=== PATIENT | male | born 1935 | race Caucasian/White ===

== ENCOUNTER → 2019-05-17 14:14 | Outpatient (CLI) | payer MEDICARE, MEDICAID, SELFPAY | PROVIDERS: Family Provider Internal Medicine; PCP Internal Medicine | DX: Z45.2 Encounter for adjustment and management of vascular access device (principal); C18.9 Malignant neoplasm of colon, unspecified; C77.2 Secondary and unspecified malignant neoplasm of intra-abdominal lymph nodes | CPT/HCPCS: 96523; A4216 ==

== ENCOUNTER → 2019-07-02 12:36 | Outpatient (CLI) | payer MEDICARE, MEDICAID, SELFPAY | PROVIDERS: Family Provider Internal Medicine; PCP Internal Medicine | DX: Z45.2 Encounter for adjustment and management of vascular access device (principal); C18.9 Malignant neoplasm of colon, unspecified; C77.2 Secondary and unspecified malignant neoplasm of intra-abdominal lymph nodes | CPT/HCPCS: 96523; A4216 ==

== ENCOUNTER → 2019-07-31 11:48 | Outpatient (CLI) | payer MEDICARE, MEDICAID, SELFPAY | PROVIDERS: Family Provider Internal Medicine; PCP Internal Medicine | DX: Z45.2 Encounter for adjustment and management of vascular access device (principal); C18.9 Malignant neoplasm of colon, unspecified; C77.2 Secondary and unspecified malignant neoplasm of intra-abdominal lymph nodes | CPT/HCPCS: 96523; A4216 ==

== ENCOUNTER 2019-08-15 17:51 | Emergency (ER) | payer MEDICARE, MEDICAID, SELFPAY ==
[2019-08-15 17:52] VITALS: BP 142/58; PULSE 43; RESP 15; TEMP 36.4; O2SAT 98; BMI 27.0
[2019-08-15 20:01] VITALS: RESP 16
[2019-08-15 20:46] LABS: Basophil# 0.07 X10^3/uL; Eosinophils% 5.8 % (0-5); Hematocrit 45.6 % (40-54); Hemoglobin 14.8 g/dL (13.0-16.5); Lymphocyte % 27.3 % (19-41); Mean Corp Hgb Conc 32.5 g/dL (32-36); Mean Corpuscular Hgb 28.6 pg (27.0-32.0); Mean Platelet Vol. 10.5 fl (6.2-12.0); Monocyte# 0.59 X10^3/uL; Monocyte% 8.5 % (0-10); NRBC Flagged by Analyzer 0 % (0-5); Neutrophil # 3.98 X10^3/uL (2.7-7.7); Neutrophil % 57.3 % (47-70); Platelet Count 172 K/mm3 (150-450); RBC Distribution Width CV 12.9 % (11.6-14.6); RBC Distribution Width SD 41.5 fl (35.1-43.9); Red Blood Count 5.18 M/mm3 (4.6-6.2)
[2019-08-15 20:59] LABS: D-Dimer Quantitative (DVT/PE) 1.62 FEU/ug/m (0.27-0.49)
[2019-08-15 21:11] LABS: Anion Gap 3 (5-15); BUN 24 mg/dL (7-18); BUN/Creat Ratio 18.8 RATIO (10-20); Calcium,Total 9.3 mg/dL (8.5-10.1); Chloride 105 mmol/L (98-107); Creatinine, Serum 1.28 mg/dL (0.70-1.30); EST Glomerular Filtration Rate 57 mL/min (>60); Est Glom Filt Rate - Afr Amer 69 mL/min (>60); Estimated Creatinine Clearance 42.96 ml/min; Glucose 296 mg/dL (74-106); Sodium Level 137 mmol/L (136-145)
--- NOTE | 2019-08-15 21:32 | ED.DCSUM_ITS ---
- ER Visit Summary Date of Service: 08/15/19 Chief Complaint: Right arm pain History of Present Illness: The patient is a 83 M who presents with right arm pain that has been gradually getting worse over the past month. Patient states the pain is over the right upper arm and into his right hand. Patient does admit to some tingling. Patient states he noted some redness and a few spots on the dorsal aspect of his forearm and upper arm. Patient denies any fevers or chills. Patient denies any discharge or drainage. Patient states he was referred to the emergency department for ultrasound of his upper extremity for possible DVT. Physical Examination: Vital signs are stable except for bradycardia of 43. Patient is afebrile. Patient is in no acute distress. Oral mucosa is pink and moist. Neck is supple. Trachea is midline. There is no JVD. Musculoskeletal exam reveals tenderness over the medial aspect of the right distal arm and dorsal aspect of the right proximal forearm. There is no bony crepitance or step-off. There is good range of motion. There is no deformity noted. Radial pulses are equal bilaterally. Capillary refill was less than 2 seconds in all digits. Sensation was intact to light touch in the radial, median, and ulnar areas. There is no edema noted. Test Results: D-dimer was obtained and was elevated at 1.62. CBC and basic metabolic profile were obtained and were essentially within normal limits. Emergency Department Course and Treatment: Patient was advised of his results. Patient was given a prescription for an outpatient venous duplex of his right upper extremity. Patient was instructed to follow-up with this as an outpatient. Patient was instructed to follow-up with his primary care physician after this. Patient understands and is agreeable with the plan. All questions were answered. Disposition: Discharge home Impression: Right arm pain This note was generated with [employer] dictation software. It may contain incorrect words, spelling, and punctuation that were not noted in review of the chart prior to signing ED Disposition - Plan for ED Patient: Disposition: Home or Assisted Living Diagnosis: Right arm pain Referrals: Caron Galeano MD [Primary Care Provider] - 3-5 Days
[2019-08-15 21:43] VITALS: RESP 16
[2019-08-15] MEDS: Enoxaparin 80 MG/0.8 ML Syringe SC (21:45)
== END 2019-08-15 21:47 | disposition home or self-care (01) ==
PROVIDERS: Emergency Provider Emergency Medicine; PCP Internal Medicine
DX: M79.621 Pain in right upper arm (principal); Z72.0 Tobacco use; J34.89 Other specified disorders of nose and nasal sinuses; M54.2 Cervicalgia; R21 Rash and other nonspecific skin eruption; R20.2 Paresthesia of skin
CPT/HCPCS: 36415; 80048; 85025; 85379; 96372; 99282

== ENCOUNTER → 2019-08-16 10:13 | Outpatient (CLI) | payer MEDICARE, MEDICAID, SELFPAY ==
[2019-08-15 17:52] VITALS: BMI 27.0
--- NOTE | 2019-08-16 10:32 | VDUE_ITS ---
Reason For Study: elevated d-dimer Right Proximal Right jugular vein is spontaneous, widely patent, phasic, with no intraluminal echogenicity noted. Right subclavian vein is spontaneous, widely patent, phasic, with no intraluminal echogenicity noted. Right Lower Arm Right radial vein is compressible. Right ulnar vein is compressible. Right Arm Right axillary vein is spontaneous, patent, phasic, competent, compressible and demonstrates augmentation. Right brachial vein is compressible. Right cephalic vein is compressible. Right basilic vein is compressible. Interpretation Summary Deep veins of the right upper extremity are patent and compressible segmentally. There is no evidence of deep vein thrombosis. The superficial veins of the right upper extremity, the basilic and cephalic veins, are patent and compressible. There is no evidence of right upper extremity superficial thrombophlebitis involving the veins imaged. Ordering Physician: Osmel Montalvo Referring Physician: Caron Galeano M.D. Performed By: Trae Alva RVT ?
== END ==
PROVIDERS: PCP Internal Medicine; Referring Provider Emergency Medicine; Visit Provider Emergency Medicine
DX: M79.601 Pain in right arm (principal)
CPT/HCPCS: 93971

== ENCOUNTER → 2019-08-28 11:16 | Outpatient (CLI) | payer MEDICARE, MEDICAID, SELFPAY ==
[2019-08-15 17:52] VITALS: BMI 27.0
[2019-08-28] MEDS: 0.9 % NaCl (Sterile) Posiflush 10 mL IV (11:28)
== END ==
PROVIDERS: PCP Internal Medicine
DX: Z45.2 Encounter for adjustment and management of vascular access device (principal); C18.9 Malignant neoplasm of colon, unspecified; C77.2 Secondary and unspecified malignant neoplasm of intra-abdominal lymph nodes
CPT/HCPCS: 96523

== ENCOUNTER → 2019-09-24 14:20 | Outpatient (CLI) | payer MEDICARE, MEDICAID, SELFPAY ==
[2019-09-24] MEDS: 0.9% NaCl VAD Flush IV (14:31)
== END ==
PROVIDERS: PCP Internal Medicine
DX: Z45.2 Encounter for adjustment and management of vascular access device (principal); C18.9 Malignant neoplasm of colon, unspecified; C77.2 Secondary and unspecified malignant neoplasm of intra-abdominal lymph nodes
CPT/HCPCS: 96523; A4216

== ENCOUNTER → 2019-10-26 12:52 | Outpatient (CLI) | payer MEDICARE, MEDICAID, SELFPAY ==
[2019-10-26] MEDS: 0.9 % NaCl (Sterile) Posiflush 10 mL IV (13:11)
== END ==
PROVIDERS: PCP Internal Medicine
DX: Z45.2 Encounter for adjustment and management of vascular access device (principal); C18.9 Malignant neoplasm of colon, unspecified; C77.2 Secondary and unspecified malignant neoplasm of intra-abdominal lymph nodes
CPT/HCPCS: 96523

== ENCOUNTER → 2019-11-23 12:44 | Outpatient (CLI) | payer MEDICARE, MEDICAID, SELFPAY ==
[2019-11-23] MEDS: 0.9 % NaCl (Sterile) Posiflush 10 mL IV (13:10)
[2019-11-23] MEDS: 0.9% NaCl VAD Flush IV (13:15)
== END ==
PROVIDERS: PCP Internal Medicine
DX: Z45.2 Encounter for adjustment and management of vascular access device (principal)
CPT/HCPCS: 96523; A4216

== ENCOUNTER 2020-11-08 12:31 | Emergency (ER) | payer MEDICARE, MEDICAID, SELFPAY ==
[2020-11-08 12:33] VITALS: BP 125/100; PULSE 78; PULSE 84; RESP 16; TEMP 36.2; O2SAT 96; O2SAT 97; BMI 24.2
--- NOTE | 2020-11-08 12:42 | EDS_ITS ---
HPI History of Present Illness Chief Complaint: Hypoglycemia Informant: patient and EMS Onset/Context/Timing Onset: Today Current Severity: Gone Maximum Severity: Moderate Narrative Narrative: Patient presents via EMS secondary to hypoglycemia. Per my understanding the patient's son found him with a decreased level of consciousness and confusion. EMS was called. Blood sugar was 28. EMS gave a 250 cc bag of D10 and repeat blood sugar was 149. Patient is alert at this time and has no complaints. He states he did take his insulin this morning but did not eat breakfast. [facility] Medical History Colon cancer Diabetes High cholesterol Hypertension Home Medications furosemide 20 mg PO DAILY 11/08/20 [History Last Taken Unknown] insulin glargine [Lantus U-100 Insulin] 22 unit SUBCUT DAILY 11/08/20 [History Last Taken Unknown] metoprolol tartrate 12.5 mg PO BID 11/08/20 [History Last Taken Unknown] Allergy/AdvReac Type Severity Reaction Status Date / Time No Known Allergies Allergy Verified 01/20/16 10:39 Surgical History H/O transurethral resection of prostate Social History Smoking Status: Current every day smoker ROS ROS ED Constitutional Constitutional ED: Denies chills or fever(s) Eyes Eyes: Denies change in vision ENT ENT ED: Denies sore throat Cardiovascular Cardiovascular: Denies chest pain Respiratory/Chest Respiratory/Chest: Denies cough or dyspnea Gastrointestinal Gastrointestinal: Denies abdominal pain, diarrhea, nausea or vomiting Genitourinary Genitourinary ED: Denies dysuria Musculoskeletal Musculoskeletal: Denies back pain Integumentary Denies rash Neurologic Neurologic: Denies headache(s) or weakness Psychiatric Psychiatric: Denies anxiety or depression Endocrine Endocrinology: Denies polydipsia or polyuria Allergic/Immunologic Allergic/Immunologic ED: Denies urticaria EXAM Physical Exam Const Vital Signs: 11/08/20 12:33 11/08/20 12:40 Temperature 97.2 F L Temperature Source Temporal Pulse Rate 84 Respiratory Rate 16 Respiratory Effort Normal Respiratory Pattern Normal Blood Pressure 125/100 H Blood Pressure Mean 108 Pulse Ox 97 Oxygen Delivery Method Room Air Positive well nourished and well developed General Appearance ED: well developed HEENT Reports normocephalic and head/scalp atraumatic Eyes PERRL and EOMs intact bilaterally Neck supple Chest Wall inspection of chest normal and palpation of chest normal Resp normal respiratory effort and clear to auscultation bilaterally Cardio regular rate and regular rhythm GI normal to inspection, nondistended, normoactive bowel sounds Palpation: soft Extremity normal to inspection Neuro oriented x3 and no sensory deficits noted Neuro Narrative: No focal neurologic deficits. Sensorium / Orientation: alert and other Psych mental status grossly normal Skin no rashes or lesions noted MDM MDM MDM Narrative Medical decision making narrative: Patient given a p.o. diet here. Blood sugars have remained in the 140s. Lab Data Labs: Laboratory Results - last 24 hr 11/08/20 13:21 POC Glucose 127 H Treatment and Re-Evaluation Comments:: At this time patient is comfortable and maintaining his blood sugars. He did assure me that he will be sure to eat when he takes his insulin. He will be discharged home with family at bedside. Discharge Plan Triage Chief Complaint: Hypoglycemia ED Provider: Alanna Mcgovern Dx/Rx/DC Orders Clinical Impression: Hypoglycemia Instructions: ED Diabetic Insulin Reaction Prescriptions: No Action Lantus U-100 Insulin 100 unit/mL solution 22 unit SUBCUT DAILY RF: 0 furosemide 20 mg tablet 20 mg PO DAILY RF: 0 metoprolol tartrate 25 mg tablet 12.5 mg PO BID RF: 0 Primary Care Provider: Caron Galeano Referrals: Caron Galeano MD [Primary Care Provider] - As Needed Disposition Disposition: Home, self care
[2020-11-08 13:26] LABS: Bedside Glucose 127 mg/dL (70-110)
[2020-11-08 14:01] LABS: Bedside Glucose 142 mg/dL (70-110)
[2020-11-08 14:34] VITALS: BP 146/95; PULSE 79; RESP 16; O2SAT 97
== END 2020-11-08 14:38 | disposition home or self-care (01) ==
PROVIDERS: Emergency Provider Emergency Medicine; PCP Internal Medicine
DX: E11.649 Type 2 diabetes mellitus with hypoglycemia without coma (principal); I10 Essential (primary) hypertension; Z79.4 Long term (current) use of insulin; Z79.899 Other long term (current) drug therapy; F17.200 Nicotine dependence, unspecified, uncomplicated
CPT/HCPCS: 82962; 99284

== ENCOUNTER 2021-02-13 10:14 | Inpatient (IN) | payer MEDICARE, MEDICAID, SELFPAY ==
[2021-02-13] VITALS (11 sets, daily range): BP systolic 103–119; BP diastolic 63–84; PULSE 73–91; RESP 10–22; TEMP 36.6–37.1; O2SAT 95–100; BMI 21.9; BMI 22.1
--- NOTE | 2021-02-13 10:25 | EDS_ITS ---
HPI HPI - GI History of Present Illness Chief Complaint: Nausea/Vomiting/Diarrhea Informant: patient Abdominal Pain/Flank Pain Onset: Days Context: Gradual Onset Timing: Continuous Current Severity: Mild Maximum Severity: Mild Nausea/Vomiting/Emesis GI Symptom: Positive for Vomiting Onset: Today Severity: Mild Diarrhea/Melena/Hematochezia GI Symptom: Positive for Diarrhea Onset: Days Stool Quality: Positive for Watery Severity: Mild Associated Symptoms Associated Symptoms: Negative for Dysuria, Frequency, Hematuria and Urgency Narrative Narrative: 85-year-old male history of colon cancer metastases, diabetes and hypertension. He has had 4 to 5 days of watery diarrhea was diagnosed with C. difficile. Spoke with his oncologist office and was sent to the emergency department today. He denies any fever or chills. Did have one episode of vomiting today. Denies any nausea currently. Prior similar symptoms: No Recent Illness/Hospitalization: No PFSH PFSH Medical History Colon cancer Diabetes High cholesterol Hypertension Home Medications furosemide 20 mg PO DAILY 11/08/20 [History Last Taken Unknown] insulin glargine [Lantus U-100 Insulin] 22 unit SUBCUT DAILY 11/08/20 [History Last Taken Unknown] metoprolol tartrate 12.5 mg PO BID 11/08/20 [History Last Taken Unknown] Allergy/AdvReac Type Severity Reaction Status Date / Time No Known Allergies Allergy Verified 01/20/16 10:39 Surgical History H/O transurethral resection of prostate Social History Smoking Status: Current every day smoker tobacco type: cigarettes ROS ROS ED ROS Narrative Diarrhea. Vomiting x1 today. Review of Systems ROS Unobtainable: Denies due to encephalopathy Constitutional Constitutional ED: Denies chills or fever(s) ENT ENT ED: Denies ear pain or sore throat Cardiovascular Cardiovascular: Denies chest pain Respiratory/Chest Respiratory/Chest: Denies cough or dyspnea Gastrointestinal Gastrointestinal: Reports abdominal pain, diarrhea, nausea and vomiting Genitourinary Genitourinary ED: Denies dysuria or hematuria Musculoskeletal Musculoskeletal: Denies myalgias Integumentary Denies rash Neurologic Neurologic: Denies headache(s) Psychiatric Psychiatric: Denies depression Endocrine Endocrinology: Denies polyuria Hematologic/Lymphatic Hematologic/Lymphatic: Denies easy bruising Allergic/Immunologic Allergic/Immunologic ED: Denies urticaria EXAM Physical Exam Narrative Exam Narrative: 85-year-old male vital signs stable afebrile. Does not look septic or toxic. H EENT exam moist with memories. Neck nontender. Lungs clear to auscultation. Heart regular rhythm. Abdomen soft. Diffusely tender. No peritoneal signs. No signs of obstruction. Positive bowel sounds. No hernia or mass. Patient moving all 4 extremities. Nontender no edema. Back nontender. Neurologically is awake and alert moving all 4 extremities. Const Vital Signs: 02/13/21 10:15 02/13/21 10:18 02/13/21 11:18 Temperature 97.8 F 97.8 F 98 F Temperature Source Oral Oral Temporal Pulse Rate 89 89 73 Respiratory Rate 16 16 10 L Blood Pressure 119/84 H 119/84 H 119/67 Blood Pressure Mean 95 95 84 Pulse Ox 99 99 99 Oxygen Delivery Method Room Air Room Air Room Air 02/13/21 12:00 02/13/21 12:52 02/13/21 13:00 Temperature 98 F 98.1 F Temperature Source Temporal Temporal Pulse Rate 73 76 77 Respiratory Rate 15 12 11 L Blood Pressure 108/64 104/70 104/63 Blood Pressure Mean 78 81 76 Pulse Ox 100 98 Oxygen Delivery Method Room Air Room Air Positive well nourished, well developed and cachectic; Negative for unkempt General Appearance ED: well developed, cachectic and NAD; Negative for unkempt Nutritional Appearance: cachectic HEENT Reports moist mucous membranes normocephalic and atraumatic; Negative for trauma or tenderness Eyes PERRL Neck no lymphadenopathy, supple and no JVD General: Negative for tenderness Resp normal respiratory effort and clear to auscultation bilaterally Auscultation: Negative for rales, rhonchi or wheezes Cardio regular rate, regular rhythm, S1 normal heart sound, S2 normal heart sound and no murmurs GI no masses; Negative for non-tender or non-distended Inspection: abdominal distention Auscultation: normoactive bowel sounds; Negative for hyperactive bowel sounds or hypoactive bowel sounds Palpation: soft and tender; Negative for guarding, rigid or rebound tenderness present Back/Spine no CVA tenderness Extremity full ROM General Extremety ED: Negative for edema or tenderness General Extremity: Negative for edema Neuro moves all extremities Sensorium / Orientation: alert, oriented to person, oriented to place and oriented to time; Negative for orientation impaired, confused, lethargic or stuporous Motor Exam: strength 5/5 throughout Psych mental status grossly normal Appearance: Negative for unkempt Skin no wounds General Skin Exam: Negative for jaundice Lesions: no lesions Rashes: no rashes MDM MDM MDM Narrative Medical decision making narrative: 85-year-old male reportedly has C. difficile. Patient needed with IV fluids and will obtain screening labs. Repeat exam patient is doing well at 2:30 PM. I spoke to his oncologist Dr. Thornton. He would like the patient to be treated inpatient for C. difficile and IV hydration. He states he is been calm in his office the last several days to receive IV fluids. Family's been telling him that the patient is weak at home and lethargic and is concerned with him over the weekend. The hospitalist on page. Lab Data Attestation: I reviewed the patient's lab results. Lab results narrative: CBC shows white count 3.1. Hemoglobin 11.7. Previously was 14. Electrolytes show a normal gap of 4. BUN of 32 creatinine 1.18 consistent with mild dehydration. Liver enzymes unremarkable. Labs: Laboratory Results - last 24 hr 02/13/21 02/13/21 10:45 10:45 WBC 3.1 L RBC 3.58 L Hgb 11.7 L Hct 35.8 L MCV 100.0 H MCH 32.7 H MCHC 32.7 RDW Std Deviation 51.5 H RDW Coeff of Ortega 14.2 Plt Count 147 L MPV 9.9 Immature Gran % (Auto) 0.300 Neut % (Auto) 45.9 L Lymph % (Auto) 42.3 H Ware % (Auto) 4.9 Eos % (Auto) 5.9 H Baso % (Auto) 0.7 Absolute Neuts (auto) 1.4 L Absolute Lymphs (auto) 1.30 Nucleated RBC % 0 Sodium 138 Potassium 4.2 Chloride 107 Carbon Dioxide 27.0 Anion Gap 4 L BUN 32 H Creatinine 1.18 Estim Creat Clear Calc 41.52 Est GFR (MDRD) Af Amer 75 Est GFR (MDRD) Non-Af 62 BUN/Creatinine Ratio 27.1 H Glucose 139 H Calcium 9.2 Total Bilirubin 0.50 AST 11 L ALT 18 Alkaline Phosphatase 76 Total Protein 6.4 Albumin 3.0 L Globulin 3.4 Albumin/Globulin Ratio 0.9 Radiography Diagnostic Testing: Radiology Impression Abdomen/Pelvis CT 02/13/21 10:30 IMPRESSION: Diffuse ascites and omental metastasis. Findings suggestive of a gallstone within the contracted gallbladder. Large left renal cyst. Diffuse circumferential thickening of the terminal ileum. Prostatic enlargement. 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
--- NOTE | 2021-02-13 10:30 | CT_ITS ---
STUDY: CT ABDOMEN AND PELVIS WITH CONTRAST REASON FOR EXAM: Male, 85 years old. Abdominal pain. History of prostate and colon carcinoma with metastasis. RADIATION DOSAGE (If Supplied By Facility): CTDIvol = ( 11.02 ) mGy, DLP = ( 623.31 ) mGycm TECHNIQUE: Transaxial images were obtained from the dome of the diaphragm to the symphysis pubis without oral contrast. IV 100mL Isovue-370 was administered. Sagittal and coronal images were reconstructed. Individualized dose optimization techniques were used for this CT. COMPARISON: None. FINDINGS: There is a 1.4 cm x 2 cm noncalcified nodule in the posterior medial aspect of the right lower lobe suggestive metastatic deposit. Minimal linear bibasilar atelectasis. Coronary artery calcification. Disturbance of the ascites with omental metastasis. Normal liver. The gallbladder is contracted. A suspect a gallstone in the region of the neck of the gallbladder. Tiny peripheral cystic changes along the serosal aspect of the spleen. Metastatic deposits should be ruled out. Normal pancreas. Normal bilateral adrenal glands. Normal right kidney. There is a 9.9 cm x 9.2 cm cyst in the upper pole of the left kidney. There is a small hiatal hernia. Fluid filled nondilated small bowel loops.. Surgical anastomosis seen in the mid descending colon. Fluid distended colon. There is diffuse segmental thickening of the terminal ileum. There is diffuse atherosclerotic calcification of the abdominal aorta. There is a fusiform infrarenal abdominal aortic aneurysm with a transverse dimension of 3.2 cm. Normal inferior vena cava. Normal retroperitoneum. The urinary bladder is distended. There is enlargement of the prostate gland. The prostate measures 5.6 cm x 6.4 cm. This causes indentation at the bladder base. Small amount of fluid is seen in the pelvis. Evidence of prior bilateral inguinal hernia repair with mesh placement. There are degenerative changes of the visualized lumbar spine. CT/Abdomen/Pelvis W IV Cont ONLY IMPRESSION: Diffuse ascites and omental metastasis. Findings suggestive of a gallstone within the contracted gallbladder. Large left renal cyst. Diffuse circumferential thickening of the terminal ileum. Prostatic enlargement. Electronically Signed: Alfredo Fall MD at 12:05 EDT , Service support ,
[2021-02-13] MEDS: 0.9% Normal Saline 1,000 ML 1000 ML IV (10:47)
[2021-02-13 10:55] LABS: Absolute Neutrophil Count 1.4 X10^3/uL (2.0-7.7); Basophil# 0.02 X10^3/uL; Basophil% 0.7 % (0-1); Eosinophil# 0.18 X10^3/uL; Eosinophils% 5.9 % (0-5); Hematocrit 35.8 % (40-54); Hemoglobin 11.7 g/dL (13.0-16.5); Lymphocyte % 42.3 % (19-41); Mean Corp Hgb Conc 32.7 g/dL (32-36); Mean Corpuscular Hgb 32.7 pg (27.0-32.0); Mean Platelet Vol. 9.9 fl (6.2-12.0); Monocyte# 0.15 X10^3/uL; Monocyte% 4.9 % (0-10); NRBC Flagged by Analyzer 0 % (0-5); Neutrophil # 1.41 X10^3/uL (2.7-7.7); Neutrophil % 45.9 % (47-70); Platelet Count 147 K/mm3 (150-450); RBC Distribution Width CV 14.2 % (11.6-14.6); RBC Distribution Width SD 51.5 fl (35.1-43.9); Red Blood Count 3.58 M/mm3 (4.6-6.2); White Blood Count 3.1 K/mm3 (4.4-11.0)
[2021-02-13 11:12] LABS: ALB/GLOB Ratio 0.9 RATIO (0.9-2.4); AST(SGOT) 11 U/L (15-37); Alanine Aminotransfer ALT/SGPT 18 U/L (16-61); Alkaline Phosphatase 76 U/L (45-117); Anion Gap 4 (5-15); BUN 32 mg/dL (7-18); BUN/Creat Ratio 27.1 RATIO (10-20); Calcium,Total 9.2 mg/dL (8.5-10.1); Chloride 107 mmol/L (98-107); Creatinine, Serum 1.18 mg/dL (0.70-1.30); EST Glomerular Filtration Rate 62 mL/min (>60); Est Glom Filt Rate - Afr Amer 75 mL/min (>60); Estimated Creatinine Clearance 41.52 ml/min; Globulin 3.4 g/dL (2.2-4.2); Glucose 139 mg/dL (74-106); Potassium 4.2 mmol/L (3.5-5.1); Protein, Total 6.4 g/dL (6.4-8.2); Sodium Level 138 mmol/L (136-145)
--- NOTE | 2021-02-13 14:47 | NURSING ---
DR GREGG QUEZADA
--- NOTE | 2021-02-13 14:48 | NURSING ---
HOSPITALIST FOR DR QUEZADA
--- NOTE | 2021-02-13 15:07 | NURSING ---
MED SURG NUAMAB CDIFF, DEHYDRATION, FAILURE TO THRIVE, COLON CA WITH METS
--- NOTE | 2021-02-13 15:44 | HP.PCM.HOS_ITS ---
Documented by User: Gaurav FERNÁNDEZ 02/13/21 16:28 HPI - General General Date of Admission: 02/13/21 Date of Service: 02/13/21 Chief Complaint: Nausea, Vomiting and Diarrhea HPI Narrative SARMAD MOY is an 85-year-old male who presents to the ED at [facility] on 02/13/2021 with a chief complaint of nausea, vomiting and diarrhea. Patient reports that for the past 2 months he has had persistent N/V/D that has gotten progressively worse. Patient reports that last bowel movement was while he was in the emergency department and that his diarrhea was brown, watery and not formed. given the chronicity of patient's symptoms, patient states there is nothing specific that brings him in today although he just feels extremely fatigued and lethargic. Review of systems is significant for abdominal pain, N/V/D, fatigue, lethargy and malaise. Past medical history is significant for colon cancer, for which the patient receives chemotherapy through a chest port. Vital signs in the ED are stable and patient is afebrile. CBC does not demonstrate a leukocytosis. BMP is unremarkable. CT of the abdomen/pelvis demonstrates diffuse ascites and omental metastasis, a gallstone within a contra cted gallbladder, left large renal cyst, prostatic enlargement and diffuse circumferential thickening of the terminal ileum suggestive of inflammation. Patient was given fluids in the ED. PFSH Medical History Colon cancer Diabetes High cholesterol Hypertension Kidney stones Smoker Home Medications amlodipine 5 mg PO DAILY 02/13/21 [History Last Taken 02/13/21] aspirin 325 mg PO QHS 02/13/21 [History Last Taken 02/12/21] diphenoxylate-atropine 1 tab PO 4X/DAY 02/13/21 [History Last Taken 02/13/21] gabapentin 300 mg PO QHS 02/13/21 [History Last Taken 02/12/21] glimepiride 4 mg PO BID 02/13/21 [History Last Taken 02/13/21] metformin 850 mg PO BIDCM 02/13/21 [History Last Taken 02/13/21] Allergy/AdvReac Type Severity Reaction Status Date / Time No Known Allergies Allergy Verified 01/20/16 10:39 Family History (Updated 02/13/21 @ 16:11 by Gaurav FERNÁNDEZ) Father , Denies any known history of HTN, CAD or DM2 No problems noted. Mother , Denies any known history of HTN, CAD or DM2 No problems noted. Surgical History H/O transurethral resection of prostate History of colon surgery Social History (Updated 02/13/21 @ 16:14 by Gaurav FERNÁNDEZ) household members: children housing: house Smoking Status: Current every day smoker tobacco type: cigarettes Tobacco: How many years used: 60 alcohol intake: former substance use type: marijuana additional social history: Patient endorses using edible marijuana gummies for his cancer related pain. ROS Constitutional Constitutional: Reports chills, fatigue, fever(s), malaise and weakness; Denies anorexia, change in weight, night sweats or other Eyes Eyes: Denies blurry vision, change in eye color, change in vision, discharge from eye(s), double vision, erythema, eye pain, loss of vision or other ENT HEENT: Denies abnormal hearing, dysphagia, ear pain, epistaxis, headache(s), hearing loss, nasal congestion, nasal discharge, post nasal drip, sinus pressure, sore throat or other Cardiovascular Cardiovascular: Reports chest pain; Denies claudication, dyspnea on exertion, edema, lightheadedness, orthopnea, palpitations, paroxysmal nocturnal dyspnea, rapid heart rate, syncope or other Respiratory/Chest Respiratory/Chest: Denies cough, dyspnea, excessive phlegm production, hemoptysis, productive cough, shortness of breath at rest, shortness of breath with exertion, wheezing or other Gastrointestinal Gastrointestinal: Reports abdominal pain, diarrhea, loose stools, nausea and vomiting; Denies coffee ground emesis, constipation, dyspepsia, hematemesis, hematochezia, melena or other Genitourinary Genitourinary: Denies burning urination, difficulty urinating, dysuria, hematuria, nocturia, urinary frequency, urinary hesitancy, urinary incontinence, urinary urgency or other Musculoskeletal Musculoskeletal: Denies arthralgias, back pain, joint pain, joint stiffness, joint swelling, myalgias, neck pain or other Neurologic Neurologic: Denies abnormal gait, abnormal speech, confusion, disequilibrium, dizziness, focal weakness, headache(s), numbness, paresthesias, seizure-like activity, seizures, syncope, tingling, tremor(s) or other Psychiatric Psychiatric: Denies anxiety, depression, homicidal ideation, suicidal ideation or other Endocrine Endocrinology: Denies change in body appearance, cold intolerance, excessive sweating, heat intolerance, polydipsia, polyuria or other Hematologic/Lymphatic Hematologic/Lymphatic: Denies anemia, easy bleeding, easy bruising, lymphadenopathy or other Allergic/Immunologic Allergic/Immunologic: Denies rhinitis, hives, eczemia, asthma or other Vital Signs Vital Signs Vital Signs: 02/13/21 10:15 02/13/21 10:18 02/13/21 11:18 Temperature 97.8 F 97.8 F 98 F Temperature Source Oral Oral Temporal Pulse Rate 89 89 73 Respiratory Rate 16 16 10 L Blood Pressure 119/84 H 119/84 H 119/67 Blood Pressure Mean 95 95 84 Pulse Ox 99 99 99 Oxygen Delivery Method Room Air Room Air Room Air 02/13/21 12:00 02/13/21 12:52 02/13/21 13:00 Temperature 98 F 98.1 F Temperature Source Temporal Temporal Pulse Rate 73 76 77 Respiratory Rate 15 12 11 L Blood Pressure 108/64 104/70 104/63 Blood Pressure Mean 78 81 76 Pulse Ox 100 98 Oxygen Delivery Method Room Air Room Air 02/13/21 14:43 02/13/21 15:10 Temperature 98.7 F Temperature Source Temporal Pulse Rate 85 85 Respiratory Rate 22 H 15 Blood Pressure 112/65 112/71 Blood Pressure Mean 80 84 Pulse Ox 99 98 Oxygen Delivery Method Room Air Room Air Weight Weight: 144 lb Body Mass Index (BMI) 21.9 Physical Exam Const alert and oriented x3 General Appearance: cooperative HEENT normocephalic, head/scalp atraumatic and hearing grossly normal bilaterally Eyes EOMs intact bilaterally and conjunctivae normal Neck no lymphadenopathy, supple and no JVD Resp normal respiratory effort, no retractions, no use of accessory muscles and clear to auscultation bilaterally Cardio regular rate, regular rhythm, no murmurs and no JVD GI Inspection: abdominal distention Auscultation: normoactive bowel sounds Palpation: tender epigastric and suprapubic Extremity normal to inspection, full ROM and no clubbing, cyanosis or edema Skin no rashes or lesions noted, no wounds, skin turgor normal and no jaundice Neuro CN's II-XII intact bilaterally Psych affect normal Results Lab / Micro Data Result Diagrams: 02/13/21 10:45 02/13/21 10:45 Labs: Laboratory Results - last 24 hr 02/13/21 10:45: WBC 3.1 L, RBC 3.58 L, Hgb 11.7 L, Hct 35.8 L, MCV 100.0 H, MCH 32.7 H, MCHC 32.7, RDW Std Deviation 51.5 H, RDW Coeff of Ortega 14.2, Plt Count 147 L, MPV 9.9, Immature Gran % (Auto) 0.300, Neut % (Auto) 45.9 L, Lymph % (Auto) 42.3 H, [place] % (Auto) 4.9, Eos % (Auto) 5.9 H, Baso % (Auto) 0.7, Absolute Neuts (auto) 1.4 L, Absolute Lymphs (auto) 1.30, Nucleated RBC % 0 02/13/21 10:45: Sodium 138, Potassium 4.2, Chloride 107, Carbon Dioxide 27.0, Anion Gap 4 L, BUN 32 H, Creatinine 1.18, Estim Creat Clear Calc 41.52, Est GFR (MDRD) Af Amer 75, Est GFR (MDRD) Non-Af 62, BUN/Creatinine Ratio 27.1 H, Glucose 139 H, Calcium 9.2, Total Bilirubin 0.50, AST 11 L, ALT 18, Alkaline Phosphatase 76, Total Protein 6.4, Albumin 3.0 L, Globulin 3.4, Albumin/Globulin Ratio 0.9 Radiology Impression Abdomen/Pelvis CT 02/13/21 10:30 IMPRESSION: Diffuse ascites and omental metastasis. Findings suggestive of a gallstone within the contracted gallbladder. Large left renal cyst. Diffuse circumferential thickening of the terminal ileum. Prostatic enlargement. 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 Patient will be admitted for acute management of C. difficile diarrhea. 1) C. Diff diarrhea Patient presents to the ED with a 2-month history of worsening nausea, vomiting and diarrhea. Patient is also complaining of abdominal pain, fatigue, malaise, fever and chills. Vital signs stable and patient is afebrile. BMP is unremarkable and does not demonstrate any electrolyte abnormalities. CT of the abdomen/pelvis demonstrates diffuse circumferential thickening of the terminal ileum consistent with colonic inflammation. Plan; admit to [facility] for management of C. difficile diarrhea, CBC and BMP in a.m., initiate vancomycin, initiate IV fluids, Tylenol as needed, Zofran as needed, Mylanta as needed, PT/OT eval ordered. 2) colon cancer with metastasis Possibly contributing #1. Continue outpatient management. 3) DM2 with neuropathy Accu-Cheks with sliding scale insulin ordered, home Metformin and glimepiride held, continue gabapentin. 4) HTN Stable, continue amlodipine. 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 DVT prophylaxis - Lovenox Patient seen by Gaurav Ruby PA-C, under the supervision of Dr. Crawford. Documented by User: Dr. Lyndsey Crawford MD 02/13/21 17:22 HPI - General General Date of Admission: 02/13/21 [facility] Medical History Colon cancer Diabetes High cholesterol Hypertension Kidney stones Smoker Home Medications amlodipine 5 mg PO DAILY 02/13/21 [History Last Taken 02/13/21] aspirin 325 mg PO QHS 02/13/21 [History Last Taken 02/12/21] diphenoxylate-atropine 1 tab PO 4X/DAY 02/13/21 [History Last Taken 02/13/21] gabapentin 300 mg PO QHS 02/13/21 [History Last Taken 02/12/21] glimepiride 4 mg PO BID 02/13/21 [History Last Taken 02/13/21] metformin 850 mg PO BIDCM 02/13/21 [History Last Taken 02/13/21] Allergy/AdvReac Type Severity Reaction Status Date / Time No Known Allergies Allergy Verified 01/20/16 10:39 Family History (Updated 02/13/21 @ 16:11 by Gaurav FERNÁNDEZ) Father , Denies any known history of HTN, CAD or DM2 No problems noted. Mother , Denies any known history of HTN, CAD or DM2 No problems noted. Surgical History H/O transurethral resection of prostate History of colon surgery Social History (Updated 02/13/21 @ 16:14 by Gaurav FERNÁNDEZ) household members: children housing: house Smoking Status: Current every day smoker tobacco type: cigarettes Tobacco: How many years used: 60 alcohol intake: former substance use type: marijuana additional social history: Patient endorses using edible marijuana gummies for his cancer related pain. Results Lab / Micro Data Result Diagrams: 02/13/21 10:45 02/13/21 10:45 Charges/Coding Addendum Addendum: This patient was seen in conjunction with JOLENE Marshall. I have independently interviewed and examined the patient and reviewed pertinent historical, laboratory, and other data. Please refer to JOLENE Marshall's note for his patient's presentation, findings, and recommendations. I have reviewed and his note and concur with his documentation 85-year-old male with past medical history of metastatic colon CA, hypertension, type II DM who comes in with diarrhea ongoing for weeks. He was diagnosed with acute C. difficile a few days ago in his oncologist office. He was not started on treatment. He was sent to the ED from his oncology office for IV fluids and the above. Patient complains of slight abdominal pain which is not new. Denied any fever or chills. Admits to some burning on urination on and off. Patient has also been vomiting. He has had 2 bowel movements today. Physical Exam: Gen: Appears unwell, pale, not jaundiced CVS:HS I +II, regular, no murmurs RESP: Diminished at lung bases GI: BS present and normal, soft, slight generalized tenderness, no guarding, no palpable organs EXT:No edema ASSESSMENT: 1. Acute CHF 2. Metastatic colon CA 3. Hypertension 4. Type II DM Plan: Continue with p.o. vancomycin, contact isolation IV fluids Hold oral hypoglycemic agents, continue on insulin sliding scale PT/OT to evaluate Repeat blood work in a.m. I discussed and explained in details the various types of CODE STATUS-full code, DNR CCA, DNR CC. Patient chose DNR CCA, NO INTUBATION. Time spent discussing CODE STATUS 16 minutes Visit Charges Inpatient E&M: 18911 Init Hosp L3 Procedures Hospitalists Procedures: 56255 Advncd Care Plan 30 Min
[2021-02-13 15:55] LABS: Magnesium 1.9 mg/dL (1.6-2.6)
[2021-02-13] MEDS: 0.9% Normal Saline 1,000 ML 125 ML IV (16:58)
[2021-02-13 17:26] LABS: Bedside Glucose 80 mg/dL (70-110)
[2021-02-13] MEDS: Vancomycin 125 MG/5 ML Susp PO.SYRINGE PO ×2 (20:16→23:09)
[2021-02-13] MEDS: Acetaminophen 325 MG Tablet 650 MG PO (20:17)
[2021-02-13] MEDS: Gabapentin 300 MG Capsule PO (22:48)
[2021-02-13] MEDS: Mag Hydrox/Al Hydrox/Simeth 30 ML UDC PO (22:48)
[2021-02-13] MEDS: Aspirin 325 MG Tablet PO (22:48)
[2021-02-13] MEDS: Ondansetron 4 MG/2 ML Vial IV (22:48)
[2021-02-13] MEDS: Menthol/Lanolin/Calamine/Znox 113 GM Tube 1 APPLIC TOPICAL (22:49)
[2021-02-13 22:55] LABS: Bedside Glucose 162 mg/dL (70-110)
[2021-02-13] MEDS: Insulin Lispro 100 UNIT/ML INSULN.PEN SC (23:09)
[2021-02-14] MEDS: 0.9% Normal Saline 1,000 ML 125 ML IV ×3 (02:06→17:33)
[2021-02-14 05:39] VITALS: BP 122/72; PULSE 79; RESP 18; TEMP 36.4; O2SAT 95
[2021-02-14 05:41] LABS: Mucous, Urine 0 SEEN /hpf (<or=2+); Squamous Epithelial Cells - UA 0 SEEN /hpf (0-5)
[2021-02-14] MEDS: Vancomycin 125 MG/5 ML Susp PO.SYRINGE PO ×3 (05:42→17:33)
[2021-02-14] MEDS: Menthol/Lanolin/Calamine/Znox 113 GM Tube 1 APPLIC TOPICAL ×3 (05:42→21:19)
[2021-02-14 05:43] LABS: Color, Urine Yellow (Yellow); Glucose, Dipstick Normal (Normal); Ketone-Dipstick Negative (Negative); Leukocyte Esterase-Dipstick 100 /ul (Negative); Nitrite-Dipstick Negative (Negative); Occult Blood-Urine 150 /ul (Negative); Protein-Dipstick 30 mg/dl (Negative); Urine Bilirubin Dipstick Negative (Negative); Urine Clarity Sl. Cloudy (Clear); Urine Urobilinogen Normal (Normal)
[2021-02-14 05:51] LABS: Bedside Glucose 128 mg/dL (70-110)
[2021-02-14 06:04] LABS: Triple Phosphate Crystals Ur 2+ /hpf (<or=1+)
[2021-02-14 06:05] LABS: Bacteria 3+ /hpf (None Seen)
[2021-02-14 06:06] LABS: Red Blood Cells-Urine 10-25 SEEN /hpf (0-5); White Blood Cells 10-25 SEEN /hpf (0-5)
[2021-02-14] MEDS: amLODIPine 5 MG Tablet PO (08:35)
[2021-02-14] MEDS: Enoxaparin 40 MG/0.4 ML Syringe SC (08:35)
[2021-02-14 08:38] VITALS: BP 127/74; PULSE 98; RESP 16; TEMP 36.3; O2SAT 98
[2021-02-14 08:41] LABS: ALB/GLOB Ratio 0.8 RATIO (0.9-2.4); AST(SGOT) 11 U/L (15-37); Alanine Aminotransfer ALT/SGPT 19 U/L (16-61); Alkaline Phosphatase 85 U/L (45-117); Anion Gap 5 (5-15); BUN 25 mg/dL (7-18); BUN/Creat Ratio 21.9 RATIO (10-20); Calcium,Total 8.8 mg/dL (8.5-10.1); Chloride 110 mmol/L (98-107); Creatinine, Serum 1.14 mg/dL (0.70-1.30); EST Glomerular Filtration Rate 65 mL/min (>60); Est Glom Filt Rate - Afr Amer 78 mL/min (>60); Estimated Creatinine Clearance 44.14 ml/min; Globulin 3.7 g/dL (2.2-4.2); Glucose 113 mg/dL (74-106); Potassium 4.2 mmol/L (3.5-5.1); Protein, Total 6.7 g/dL (6.4-8.2); Sodium Level 140 mmol/L (136-145)
--- NOTE | 2021-02-14 10:10 | CASEMGMT ---
ASHLEIGH GOODRICH Face to Face with patient for initial transition planning/care coordination assessment. RN CM introduced self and role at [facility]. Patient lying in bed, alert and oriented. Patient willing to participate in assessment and is able to answer all questions appropriately. Care providers, pharmacy, and demographics verified. Patient wishes to discharge home, denies need for home health at this time. Patient states he has no further needs or concerns at this time. CM to follow for discharge planning needs that may arise. PCP: Froylan Specialists: Norberto, oncologist Preferred Pharmacy: [facility] Insurance: [employer] Prescription Benefit: yes Living Will/HPOA: none LNOK: sons Living Arrangements: Patient lives with son in a 2 story home with access for bed and bath on first floor if needed. Patient states he is independent and able to ambulate stairs. Transportation: Friend [employer] DME/HHC: Patient states he has shower chair, BSC, cane, walker, rollator, grab bars, and medical alert. Patient states he has previously had HHC but could not recall and states they did not help. Disposition Plan: Patient to discharge home with family support and follow-up plans in place. Jessica WEBB, RN, CM
[2021-02-14 12:57] LABS: Absolute Lymphocyte Count 1.89 X10^3/uL (0.83-4.51); Absolute Neutrophil Count 1.1 X10^3/uL (2.0-7.7); Basophil# 0.02 X10^3/uL; Basophil% 0.6 % (0-1); Eosinophil# 0.12 X10^3/uL; Eosinophils% 3.7 % (0-5); Hematocrit 40.4 % (40-54); Hemoglobin 13.1 g/dL (13.0-16.5); Lymphocyte # 1.89 X10^3/ul (0.83-4.51); Mean Corp Hgb Conc 32.4 g/dL (32-36); Mean Corpuscular Hgb 32.6 pg (27.0-32.0); Mean Corpuscular Volume 100.5 fL (80-94); Mean Platelet Vol. 10.2 fl (6.2-12.0); Monocyte# 0.12 X10^3/uL; Monocyte% 3.7 % (0-10); NRBC Flagged by Analyzer 0 % (0-5); Neutrophil # 1.11 X10^3/uL (2.7-7.7); Platelet Count 171 K/mm3 (150-450); RBC Distribution Width CV 14.6 % (11.6-14.6); RBC Distribution Width SD 53.4 fl (35.1-43.9); Red Blood Count 4.02 M/mm3 (4.6-6.2); White Blood Count 3.3 K/mm3 (4.4-11.0)
[2021-02-14 15:02] VITALS: BP 120/57; PULSE 95; RESP 16; TEMP 36.8; O2SAT 96
[2021-02-14 16:46] LABS: Bedside Glucose 133 mg/dL (70-110)
[2021-02-14 20:41] VITALS: BP 115/68; PULSE 96; RESP 18; TEMP 36.9; O2SAT 98
[2021-02-14] MEDS: Acetaminophen 325 MG Tablet 650 MG PO (21:18)
[2021-02-14] MEDS: Mag Hydrox/Al Hydrox/Simeth 30 ML UDC PO (21:19)
[2021-02-14] MEDS: Insulin Lispro 100 UNIT/ML INSULN.PEN SC (21:19)
[2021-02-14] MEDS: Gabapentin 300 MG Capsule PO (21:19)
[2021-02-14] MEDS: Aspirin 325 MG Tablet PO (21:19)
--- NOTE | 2021-02-14 22:17 | PCS.PANDOC ---
PANDEMIC DOCUMENTATION INITIATED: Date: 02/13/2021 Time: 1600
[2021-02-15 00:42] VITALS: BP 106/61; PULSE 86; RESP 18; TEMP 36.8; O2SAT 94
[2021-02-15] MEDS: 0.9% Normal Saline 1,000 ML 125 ML IV ×2 (00:45→05:55)
[2021-02-15] MEDS: Vancomycin 125 MG/5 ML Susp PO.SYRINGE PO ×4 (00:45→17:19)
[2021-02-15 01:31] LABS: Bedside Glucose 160 mg/dL (70-110)
[2021-02-15] MEDS: Menthol/Lanolin/Calamine/Znox 113 GM Tube 1 APPLIC TOPICAL ×3 (05:55→21:27)
[2021-02-15] MEDS: Mag Hydrox/Al Hydrox/Simeth 30 ML UDC PO (05:55)
[2021-02-15 06:02] VITALS: BP 132/77; PULSE 86; RESP 18; TEMP 36.8; O2SAT 97
[2021-02-15 06:11] LABS: Bedside Glucose 67 mg/dL (70-110)
[2021-02-15 06:53] LABS: Absolute Lymphocyte Count 1.51 X10^3/uL (0.83-4.51); Absolute Neutrophil Count 0.6 X10^3/uL (2.0-7.7); Basophil# 0.01 X10^3/uL; Basophil% 0.4 % (0-1); Eosinophils% 8.3 % (0-5); Hematocrit 35.4 % (40-54); Hemoglobin 11.3 g/dL (13.0-16.5); Lymphocyte # 1.51 X10^3/ul (0.83-4.51); Lymphocyte % 62.7 % (19-41); Mean Corp Hgb Conc 31.9 g/dL (32-36); Mean Corpuscular Volume 100.3 fL (80-94); Mean Platelet Vol. 9.5 fl (6.2-12.0); Monocyte# 0.08 X10^3/uL; Monocyte% 3.3 % (0-10); NRBC Flagged by Analyzer 0 % (0-5); Neutrophil % 24.9 % (47-70); POSITIVE DIFFERENTIAL YES; Platelet Count 132 K/mm3 (150-450); RBC Distribution Width CV 14.5 % (11.6-14.6); RBC Distribution Width SD 52.1 fl (35.1-43.9); Red Blood Count 3.53 M/mm3 (4.6-6.2); White Blood Count 2.4 K/mm3 (4.4-11.0)
[2021-02-15 06:55] LABS: Differential Indicated SCAN CRITERIA MET
[2021-02-15 07:03] LABS: ALB/GLOB Ratio 0.8 RATIO (0.9-2.4); AST(SGOT) 10 U/L (15-37); Alanine Aminotransfer ALT/SGPT 16 U/L (16-61); Albumin, Serum 2.6 g/dL (3.2-5.0); Alkaline Phosphatase 70 U/L (45-117); Anion Gap 7 (5-15); BUN 20 mg/dL (7-18); BUN/Creat Ratio 18.3 RATIO (10-20); Calcium,Total 8.1 mg/dL (8.5-10.1); Chloride 110 mmol/L (98-107); Creatinine, Serum 1.09 mg/dL (0.70-1.30); EST Glomerular Filtration Rate 68 mL/min (>60); Est Glom Filt Rate - Afr Amer 83 mL/min (>60); Estimated Creatinine Clearance 47.06 ml/min; Globulin 3.2 g/dL (2.2-4.2); Glucose 97 mg/dL (74-106); Magnesium 2.1 mg/dL (1.6-2.6); Protein, Total 5.8 g/dL (6.4-8.2); Sodium Level 142 mmol/L (136-145)
[2021-02-15 08:42] LABS: Differential Comment SCANNED
[2021-02-15] MEDS: amLODIPine 5 MG Tablet PO (08:59)
[2021-02-15] MEDS: Enoxaparin 40 MG/0.4 ML Syringe SC (08:59)
[2021-02-15 09:01] VITALS: BP 122/69; PULSE 96; RESP 16; TEMP 36.8; O2SAT 92
--- NOTE | 2021-02-15 11:31 | PN.HOSP_ITS ---
Subjective Subjective Late entry note: Patient was seen and examined on the morning on 02/14/21. He has had 3 bowel movements . Denied any new complaint. Still feels weak. Objective Data Objective Data Vital Signs: Vital Signs Temp Pulse Resp BP Pulse Ox 98.2 F 96 16 122/69 H 92 02/15/21 09:01 02/15/21 09:01 02/15/21 09:01 02/15/21 09:01 02/15/21 09:01 Oxygen Delivery Method Room Air Weight: 69.037 kg Body Mass Index (BMI) 22.1 Intake & Output: Intake and Output for Last 24 Hours 02/13/21 02/14/21 02/15/21 23:59 23:59 23:59 Intake Total 1574.83 / 1574.83 3635.84 / 3635.84 2160.83 / 2160.83 Output Total 400 / 400 Balance 1174.83 / 1174.83 3635.84 / 3635.84 2160.83 / 2160.83 Medical Nutrition Assessment Dietitian: Malnutrition Criteria Met Start: 02/13/21 16:42 Freq: Status: Active Protocol: Document 02/13/21 16:51 AG (Rec: 02/13/21 16:51 AG [id number]) Nutrition Malnutrition Evidence of Malnutrition Exists Yes Malnutrition (severe): Acute Illness/Injury Evidenced By Suboptimal Energy Intake ( Severe),Weight Loss (Severe) Clinical Problem Acute Disease or Injury Related Malnutrition Etiology severe, acute malnutrition r/t inadequate energy intake w/ increased energy needs d/t cancer Signs/Symptoms as evidenced by unintentional wt loss of 11.5#/7.3% x 2 weeks; estimated PO intake meeting <50% of estimated nutritional needs x 2 weeks Status Active Problem Recommendation Dietitian Recommendations/Changes continue regular diet d/t acute malnutrition; will add 120mL ensure enlive 4x/day Lab / Micro Data Result Diagrams: 02/15/21 06:36 02/15/21 06:36 Labs: Laboratory Results - last 24 hr 02/14/21 08:05: WBC 3.3 L, RBC 4.02 L, Hgb 13.1, Hct 40.4, MCV 100.5 H, MCH 32.6 H, MCHC 32.4, RDW Std Deviation 53.4 H, RDW Coeff of Ortega 14.6, Plt Count 171, MPV 10.2, Immature Gran % (Auto) 0.000, Neut % (Auto) 34.0 L, Lymph % (Auto) 58.0 H, [place] % (Auto) 3.7, Eos % (Auto) 3.7, Baso % (Auto) 0.6, Absolute Neuts (auto) 1.1 L, Absolute Lymphs (auto) 1.89, Nucleated RBC % 0 02/14/21 16:38: POC Glucose 133 H 02/14/21 21:16: POC Glucose 160 H 02/15/21 05:58: POC Glucose 67 L 02/15/21 06:36: WBC 2.4 L, RBC 3.53 L, Hgb 11.3 L, Hct 35.4 L, MCV 100.3 H, MCH 32.0, MCHC 31.9 L, RDW Std Deviation 52.1 H, RDW Coeff of Ortega 14.5, Plt Count 132 L, MPV 9.5, Immature Gran % (Auto) 0.400, Neut % (Auto) 24.9 L, Lymph % (Auto) 62.7 H, [place] % (Auto) 3.3, Eos % (Auto) 8.3 H, Baso % (Auto) 0.4, Absolute Neuts (auto) 0.6 L, Absolute Lymphs (auto) 1.51, Nucleated RBC % 0, Differential Comment SCANNED 02/15/21 06:36: Sodium 142, Potassium 4.0, Chloride 110 H, Carbon Dioxide 25.0, Anion Gap 7, BUN 20 H, Creatinine 1.09, Estim Creat Clear Calc 47.06, Est GFR (MDRD) Af Amer 83, Est GFR (MDRD) Non-Af 68, BUN/Creatinine Ratio 18.3, Glucose 97, Calcium 8.1 L, Magnesium 2.1, Total Bilirubin 0.60, AST 10 L, ALT 16, Alkaline Phosphatase 70, Total Protein 5.8 L, Albumin 2.6 L, Globulin 3.2, Albumin/Globulin Ratio 0.8 L Micro: Microbiology 02/13/21 16:55 Stool Enteric Bacteriology - Final 02/13/21 15:15 Mucosa - Nose SARS-CoV-2 Antigen (Rapid) - Final Physical Exam Narrative Physical exam: General: Alert, Oriented x3, Cooperative, No apparent distress, Well developed HEENT: Atraumatic Oral: Moist Mucosa Neck: Supple Lungs: Clear to auscultation Cardiovascular: HS I+II, regular, no murmurs Abdomen: Bowel Sounds Present, soft, slight abdominal tenderness, no guarding or RBT Extremities: No edema Assessment & Plan Assessment/Plan (1) Clostridium difficile diarrhea: (2) Hypoglycemia: (3) Adult failure to thrive: (4) Weakness: (5) 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 Acute C. diff, slowing improving Continue on oral vancomycin 2. Severe protein calorie malnutrition secondary to #1 and 3 Project Construction Assistant Manager consulted, continue on supplements 3. Metastatic colon CA with mets to bone and ascites On immunotherapy, follows with Dr. Thornton Continue with pain control 4. Hypertension, controlled, continue on home medication 4. Type II DM, off oral hypoglycemics, continue to monitor on insulin sliding scale blood glucose checks Charges/Coding Visit Charges Inpatient E&M: 84916 Subs Hosp L2
--- NOTE | 2021-02-15 11:41 | PN.HOSP_ITS ---
Subjective Subjective Patient was seen and examined. He has had a little bowel movement. He was seen by PT and OT. Additional therapy recommended. Patient has not been eating well. He had an episode of hypoglycemia this morning. Objective Data Objective Data Vital Signs: Vital Signs Temp Pulse Resp BP Pulse Ox 98.2 F 96 16 122/69 H 92 02/15/21 09:01 02/15/21 09:01 02/15/21 09:01 02/15/21 09:01 02/15/21 09:01 Oxygen Delivery Method Room Air Weight: 69.037 kg Body Mass Index (BMI) 22.1 Intake & Output: Intake and Output for Last 24 Hours 02/13/21 02/14/21 02/15/21 23:59 23:59 23:59 Intake Total 1574.83 / 1574.83 3635.84 / 3635.84 2160.83 / 2160.83 Output Total 400 / 400 Balance 1174.83 / 1174.83 3635.84 / 3635.84 2160.83 / 2160.83 Medical Nutrition Assessment Dietitian: Malnutrition Criteria Met Start: 02/13/21 16:42 Freq: Status: Active Protocol: Document 02/13/21 16:51 AG (Rec: 02/13/21 16:51 AG [id number]) Nutrition Malnutrition Evidence of Malnutrition Exists Yes Malnutrition (severe): Acute Illness/Injury Evidenced By Suboptimal Energy Intake ( Severe),Weight Loss (Severe) Clinical Problem Acute Disease or Injury Related Malnutrition Etiology severe, acute malnutrition r/t inadequate energy intake w/ increased energy needs d/t cancer Signs/Symptoms as evidenced by unintentional wt loss of 11.5#/7.3% x 2 weeks; estimated PO intake meeting <50% of estimated nutritional needs x 2 weeks Status Active Problem Recommendation Dietitian Recommendations/Changes continue regular diet d/t acute malnutrition; will add 120mL ensure enlive 4x/day Lab / Micro Data Result Diagrams: 02/15/21 06:36 02/15/21 06:36 Labs: Laboratory Results - last 24 hr 02/14/21 08:05: WBC 3.3 L, RBC 4.02 L, Hgb 13.1, Hct 40.4, MCV 100.5 H, MCH 32.6 H, MCHC 32.4, RDW Std Deviation 53.4 H, RDW Coeff of Ortega 14.6, Plt Count 171, MPV 10.2, Immature Gran % (Auto) 0.000, Neut % (Auto) 34.0 L, Lymph % (Auto) 58.0 H, [place] % (Auto) 3.7, Eos % (Auto) 3.7, Baso % (Auto) 0.6, Absolute Neuts (auto) 1.1 L, Absolute Lymphs (auto) 1.89, Nucleated RBC % 0 02/14/21 16:38: POC Glucose 133 H 02/14/21 21:16: POC Glucose 160 H 02/15/21 05:58: POC Glucose 67 L 02/15/21 06:36: WBC 2.4 L, RBC 3.53 L, Hgb 11.3 L, Hct 35.4 L, MCV 100.3 H, MCH 32.0, MCHC 31.9 L, RDW Std Deviation 52.1 H, RDW Coeff of Ortega 14.5, Plt Count 132 L, MPV 9.5, Immature Gran % (Auto) 0.400, Neut % (Auto) 24.9 L, Lymph % (Auto) 62.7 H, [place] % (Auto) 3.3, Eos % (Auto) 8.3 H, Baso % (Auto) 0.4, Absolute Neuts (auto) 0.6 L, Absolute Lymphs (auto) 1.51, Nucleated RBC % 0, Differential Comment SCANNED 02/15/21 06:36: Sodium 142, Potassium 4.0, Chloride 110 H, Carbon Dioxide 25.0, Anion Gap 7, BUN 20 H, Creatinine 1.09, Estim Creat Clear Calc 47.06, Est GFR (MDRD) Af Amer 83, Est GFR (MDRD) Non-Af 68, BUN/Creatinine Ratio 18.3, Glucose 97, Calcium 8.1 L, Magnesium 2.1, Total Bilirubin 0.60, AST 10 L, ALT 16, Alkaline Phosphatase 70, Total Protein 5.8 L, Albumin 2.6 L, Globulin 3.2, Albumin/Globulin Ratio 0.8 L Micro: Microbiology 02/13/21 16:55 Stool Enteric Bacteriology - Final 02/13/21 15:15 Mucosa - Nose SARS-CoV-2 Antigen (Rapid) - Final Physical Exam Narrative Physical exam: General: Alert, Oriented x3, Cooperative, No apparent distress, Well developed HEENT: Atraumatic Oral: Moist Mucosa Neck: Supple Lungs: Clear to auscultation Cardiovascular: HS I+II, regular, no murmurs Abdomen: Bowel Sounds Present, soft, slight abdominal tenderness with distension, no guarding or RBT Extremities: No edema Assessment & Plan Assessment/Plan (1) Clostridium difficile diarrhea: (2) Hypoglycemia: (3) Adult failure to thrive: (4) Weakness: (5) 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 Thornton in the outpatient comes in with complaints of diarrhea. Patient was diagnosed with acute C. difficile in the outpatient 1. Acute C. diff, slowing improving C. difficile was diagnosed a couple of days prior to admission in the outpatient. Continue on oral vancomycin 2. Severe protein calorie malnutrition secondary to #1 and 3 Talent Partner consulted, continue on supplements 3. Ascites secondary to metastatic colon CA, patient has slight abdominal discomfort with distention Will arrange for therapeutic paracentesis Would also check ascitic fluid cell count/WBC and cultures 4. Metastatic colon CA with mets to bone and ascites On immunotherapy, follows with Dr. Thornton Continue with pain control 5. Hypertension, controlled, continue on home medication 6. Type II DM, off oral hypoglycemics, episodes of oral hypoglycemia We will switch to D5 normal saline with potassium continue to monitor on insulin sliding scale blood glucose checks 7. Disposition: Possible discharge home with home health/palliative care Charges/Coding Visit Charges Inpatient E&M: 59600 Subs Hosp L2
[2021-02-15 13:38] VITALS: BP 131/50; PULSE 97; RESP 16; TEMP 37.4; O2SAT 96
[2021-02-15 16:36] LABS: Bedside Glucose 198 mg/dL (70-110)
[2021-02-15 21:16] VITALS: BP 127/74; PULSE 95; RESP 15; TEMP 36.6; O2SAT 95
[2021-02-15] MEDS: Aspirin 325 MG Tablet PO (21:25)
[2021-02-15] MEDS: Gabapentin 300 MG Capsule PO (21:25)
[2021-02-15 21:36] LABS: Bedside Glucose 171 mg/dL (70-110)
[2021-02-16] MEDS: Vancomycin 125 MG/5 ML Susp PO.SYRINGE PO ×5 (00:27→23:44)
[2021-02-16 02:55] VITALS: BP 141/51; PULSE 102; RESP 18; TEMP 36.9; O2SAT 95
[2021-02-16] MEDS: Menthol/Lanolin/Calamine/Znox 113 GM Tube 1 APPLIC TOPICAL ×3 (06:21→22:02)
[2021-02-16 06:31] LABS: Bedside Glucose 184 mg/dL (70-110)
[2021-02-16 07:11] LABS: ALB/GLOB Ratio 0.8 RATIO (0.9-2.4); AST(SGOT) 13 U/L (15-37); Alanine Aminotransfer ALT/SGPT 16 U/L (16-61); Albumin, Serum 2.3 g/dL (3.2-5.0); Alkaline Phosphatase 63 U/L (45-117); Anion Gap 6 (5-15); BUN 16 mg/dL (7-18); Calcium,Total 7.6 mg/dL (8.5-10.1); Chloride 111 mmol/L (98-107); Creatinine, Serum 1.07 mg/dL (0.70-1.30); EST Glomerular Filtration Rate 70 mL/min (>60); Est Glom Filt Rate - Afr Amer 84 mL/min (>60); Estimated Creatinine Clearance 47.94 ml/min; Glucose 191 mg/dL (74-106); Potassium 4.2 mmol/L (3.5-5.1); Protein, Total 5.3 g/dL (6.4-8.2); Sodium Level 139 mmol/L (136-145)
[2021-02-16 09:15] VITALS: BP 102/62; PULSE 96; RESP 18; TEMP 36.4; O2SAT 96
[2021-02-16] MEDS: amLODIPine 5 MG Tablet PO (09:24)
--- NOTE | 2021-02-16 09:36 | PCM.PN.HOSP ---
Subjective Subjective 85-year-old male with past medical history of metastatic colon CA, mets to bone, follows with Dr. Thornton in the outpatient comes in with complaints of diarrhea. Patient was diagnosed with acute C. difficile in the outpatient Objective Data Objective Data Vital Signs: Vital Signs Temp Pulse Resp BP Pulse Ox 98.5 F 102 H 18 141/51 H 95 02/16/21 02:55 02/16/21 02:55 02/16/21 02:55 02/16/21 02:55 02/16/21 02:55 Oxygen Delivery Method Room Air Weight: 70.035 kg Body Mass Index (BMI) 22.1 Intake & Output: Intake and Output for Last 24 Hours 02/14/21 02/15/21 02/16/21 23:59 23:59 23:59 Intake Total 3635.84 / 3635.84 2714.16 / 2714.16 1657.5 / 1657.5 Balance 3635.84 / 3635.84 2714.16 / 2714.16 1657.5 / 1657.5 Medical Nutrition Assessment Dietitian: Malnutrition Criteria Met Start: 02/13/21 16:42 Freq: Status: Active Protocol: Document 02/13/21 16:51 AG (Rec: 02/13/21 16:51 AG [id number]) Nutrition Malnutrition Evidence of Malnutrition Exists Yes Malnutrition (severe): Acute Illness/Injury Evidenced By Suboptimal Energy Intake ( Severe),Weight Loss (Severe) Clinical Problem Acute Disease or Injury Related Malnutrition Etiology severe, acute malnutrition r/t inadequate energy intake w/ increased energy needs d/t cancer Signs/Symptoms as evidenced by unintentional wt loss of 11.5#/7.3% x 2 weeks; estimated PO intake meeting <50% of estimated nutritional needs x 2 weeks Status Active Problem Recommendation Dietitian Recommendations/Changes continue regular diet d/t acute malnutrition; will add 120mL ensure enlive 4x/day Lab / Micro Data Result Diagrams: 02/15/21 06:36 02/16/21 06:15 Labs: Laboratory Results - last 24 hr 02/15/21 16:32: POC Glucose 198 H 02/15/21 21:23: POC Glucose 171 H 02/16/21 06:15: Sodium 139, Potassium 4.2, Chloride 111 H, Carbon Dioxide 22.0, Anion Gap 6, BUN 16, Creatinine 1.07, Estim Creat Clear Calc 47.94, Est GFR (MDRD) Af Amer 84, Est GFR (MDRD) Non-Af 70, BUN/Creatinine Ratio 15.0, Glucose 191 H, Calcium 7.6 L, Total Bilirubin 0.50, AST 13 L, ALT 16, Alkaline Phosphatase 63, Total Protein 5.3 L, Albumin 2.3 L, Globulin 3.0, Albumin/Globulin Ratio 0.8 L 02/16/21 06:19: POC Glucose 184 H Micro: Microbiology 02/14/21 05:30 Urine, Midstream Urine Culture - Final Aerococcus viridans. Mixed Gram Pos & Gram Neg Org 02/13/21 16:55 Stool Enteric Bacteriology - Final 02/13/21 15:15 Mucosa - Nose SARS-CoV-2 Antigen (Rapid) - Final Physical Exam Narrative GENERAL: cooperative HEENT: Atraumatic; EYES; Anicteric, Normal Conjunctiva NECK; supple, normal thyroid, RESPIRATORY: Diminished to auscultation CARDIOVASCULAR: Regular S1 S2, GI: Abdomen slightly distended : No Renal angle tenderness; EXTREMITIES: No edema, no clubbing, MUSCULOSKELETAL: no muscle waisting NEURO: Awake; no lateralizing signs. SKIN: No Rash PSYCH; Flat affect Assessment & Plan Assessment/Plan (1) Clostridium difficile diarrhea: (2) Hypoglycemia: (3) Adult failure to thrive: (4) Weakness: (5) Colon cancer metastasized to bone: PLAN: 85-year-old male with past medical history of metastatic colon CA, mets to bone, follows with Dr. Thornton in the outpatient comes in with complaints of diarrhea. Patient was diagnosed with acute C. difficile in the outpatient 1. Acute C. diff, slowing improving Patient has been managed with vancomycin symptoms significantly improved 2. Ascites ?Suspected to secondary to malignant ascites from metastatic colon CA patient scheduled to undergo diagnostic and therapeutic paracentesis 3. Severe protein calorie malnutrition secondary to #1 and 2 Mortgage Underwriter consulted, continue on supplements 4. Metastatic colon CA with mets to bone and ascites On immunotherapy, follows with Dr. Thornton Continue with pain control 5. Hypertension - Blood pressure controlled, home medications continued with dose adjustment as needed 6. Diabetes mellitus type II uncontrolled with episodes of hypoglycemia -patient's oral hypoglycemics held. Placed on Accu-Cheks a.c. and at bedtime and covered with sliding scale insulin 7. Physical deconditioning - Requested for PT OT eval and administrator social welfare to assist with discharge planning 8. DVT prophylaxis ?Held in anticipation of patient's paracentesis Charges/Coding Visit Charges Inpatient E&M: 63302 Subs Hosp L2
--- NOTE | 2021-02-16 09:43 | PCM.DC.SUM ---
Providers Date of Admission: 02/13/21 Primary Care Physician: Dr. Caron Galeano MD Reason For Visit: ACUTE DIARRHEA Diagnosis Discharge Diagnosis (1) Clostridium difficile diarrhea: Status: Acute Code(s): A04.72 - Enterocolitis due to Clostridium difficile, not specified as recurrent (2) Hypoglycemia: Status: Acute Code(s): E16.2 - Hypoglycemia, unspecified (3) Adult failure to thrive: Status: Acute Code(s): R62.7 - Adult failure to thrive (4) Weakness: Status: Acute Code(s): R53.1 - Weakness (5) Colon cancer metastasized to bone: Status: Acute Code(s): C18.9 - Malignant neoplasm of colon, unspecified; C79.51 - Secondary malignant neoplasm of bone Medications at Discharge Home Medications amlodipine 5 mg PO DAILY 02/13/21 aspirin 325 mg PO QHS 02/13/21 diphenoxylate-atropine 1 tab PO 4X/DAY 02/13/21 gabapentin 300 mg PO QHS 02/13/21 glimepiride 4 mg PO BID 02/13/21 metformin 850 mg PO BIDCM 02/13/21 Medical Records Data Medical Nutrition Assessment Dietitian: Malnutrition Criteria Met Start: 02/13/21 16:42 Freq: Status: Active Protocol: Document 02/13/21 16:51 AG (Rec: 02/13/21 16:51 [id number]) Nutrition Malnutrition Evidence of Malnutrition Exists Yes Malnutrition (severe): Acute Illness/Injury Evidenced By Suboptimal Energy Intake ( Severe),Weight Loss (Severe) Clinical Problem Acute Disease or Injury Related Malnutrition Etiology severe, acute malnutrition r/t inadequate energy intake w/ increased energy needs d/t cancer Signs/Symptoms as evidenced by unintentional wt loss of 11.5#/7.3% x 2 weeks; estimated PO intake meeting <50% of estimated nutritional needs x 2 weeks Status Active Problem Recommendation Dietitian Recommendations/Changes continue regular diet d/t acute malnutrition; will add 120mL ensure enlive 4x/day Weight / BMI Weight Weight: 70.035 kg Body Mass Index (BMI) 22.1 ABG / Lab / Microbiology Data Result Diagrams: 02/15/21 06:36 02/16/21 06:15 Laboratory: Laboratory Results - last 24 hr 02/15/21 16:32: POC Glucose 198 H 02/15/21 21:23: POC Glucose 171 H 02/16/21 06:15: Sodium 139, Potassium 4.2, Chloride 111 H, Carbon Dioxide 22.0, Anion Gap 6, BUN 16, Creatinine 1.07, Estim Creat Clear Calc 47.94, Est GFR (MDRD) Af Amer 84, Est GFR (MDRD) Non-Af 70, BUN/Creatinine Ratio 15.0, Glucose 191 H, Calcium 7.6 L, Total Bilirubin 0.50, AST 13 L, ALT 16, Alkaline Phosphatase 63, Total Protein 5.3 L, Albumin 2.3 L, Globulin 3.0, Albumin/Globulin Ratio 0.8 L 02/16/21 06:19: POC Glucose 184 H Microbiology: Microbiology 02/14/21 05:30 Urine, Midstream Urine Culture - Final Aerococcus viridans. Mixed Gram Pos & Gram Neg Org 02/13/21 16:55 Stool Enteric Bacteriology - Final 02/13/21 15:15 Mucosa - Nose SARS-CoV-2 Antigen (Rapid) - Final Discharge Plan Admission Admit Date/Time: 02/13/21 14:52 Attending Provider: Miguel Edwards Primary Care Provider: Caron Galeano Discharge Orders/Prescriptions Prescriptions: No Action aspirin 325 mg Tablet 325 mg PO QHS RF: 0 metformin 850 mg tablet 850 mg PO BIDCM RF: 0 diphenoxylate-atropine 2.5-0.025 mg tablet 1 tab PO 4X/DAY RF: 0 amlodipine 5 mg tablet 5 mg PO DAILY RF: 0 glimepiride 4 mg tablet 4 mg PO BID RF: 0 gabapentin 300 mg capsule 300 mg PO QHS RF: 0 Referrals / Follow Up: Caron Galeano MD [Primary Care Provider] - Charges/Coding Visit Charges Inpatient E&M: 63416 Disch Hosp
--- NOTE | 2021-02-16 09:44 | CASEMGMT ---
Pt screened with [facility] Palliative Care Screening Tool due to Strata 3, pt met criteria. Order received, tc to Alanna at [facility] to make aware that referral was faxed.
[2021-02-16 11:11] LABS: Absolute Lymphocyte Count 1.24 X10^3/uL (0.83-4.51); Absolute Neutrophil Count 0.4 X10^3/uL (2.0-7.7); Basophil# 0.02 X10^3/uL; Eosinophil# 0.12 X10^3/uL; Eosinophils% 5.7 % (0-5); Hematocrit 30.9 % (40-54); Hemoglobin 10.1 g/dL (13.0-16.5); Lymphocyte # 1.24 X10^3/ul (0.83-4.51); Lymphocyte % 59.3 % (19-41); Mean Corp Hgb Conc 32.7 g/dL (32-36); Mean Corpuscular Hgb 32.4 pg (27.0-32.0); Mean Platelet Vol. 9.3 fl (6.2-12.0); Monocyte# 0.29 X10^3/uL; Monocyte% 13.9 % (0-10); NRBC Flagged by Analyzer 0 % (0-5); Neutrophil # 0.41 X10^3/uL (2.7-7.7); Neutrophil % 19.6 % (47-70); POSITIVE DIFFERENTIAL YES; POSITIVE MORPHOLOGY YES; Platelet Count 112 K/mm3 (150-450); RBC Distribution Width CV 14.5 % (11.6-14.6); Red Blood Count 3.12 M/mm3 (4.6-6.2); White Blood Count 2.1 K/mm3 (4.4-11.0)
[2021-02-16] MEDS: Insulin Lispro 100 UNIT/ML INSULN.PEN SC (11:15)
[2021-02-16 11:20] LABS: Differential Indicated SCAN CRITERIA MET
[2021-02-16 11:22] LABS: Anion Gap 4 (5-15); BUN 18 mg/dL (7-18); BUN/Creat Ratio 14.3 RATIO (10-20); Calcium,Total 7.1 mg/dL (8.5-10.1); Chloride 111 mmol/L (98-107); Creatinine, Serum 1.26 mg/dL (0.70-1.30); EST Glomerular Filtration Rate 58 mL/min (>60); Est Glom Filt Rate - Afr Amer 70 mL/min (>60); Estimated Creatinine Clearance 40.71 ml/min; Glucose 280 mg/dL (74-106); International Normalized Ratio 1.4; Magnesium 1.9 mg/dL (1.6-2.6); Potassium 3.9 mmol/L (3.5-5.1); Prothrombin Time (Protime)PT. 16.3 SECONDS (11.7-14.9); Sodium Level 137 mmol/L (136-145)
[2021-02-16 11:23] LABS: Partial Thromboplast Time 35.7 Seconds (24.1-36.2)
[2021-02-16 11:25] LABS: Bedside Glucose 257 mg/dL (70-110)
--- NOTE | 2021-02-16 11:52 | CASEMGMT ---
Addendum entered by Sandy iMlligan 02/16/21 14:45: Received tc back from Jennifer at [facility], they will accept patient. ASHLEIGH GOODRICH in to pt room to make aware. Pt verbalizes understanding. Addendum entered by Sandy Milligan 02/16/21 12:58: ASHLEIGH GOODRICH in to pt room. Pt has chosen [facility] for HHC. TC to Jennifer liaison, referral made and faxed at this time. She will call back with acceptance. Original Note: ASHLEIGH GOODRICH received tc from Alanna at [facility] who states a referral was given in June by the oncologist and patient declined. She would like pt to be asked if he would be agreeable to the eval. ASHLEIGH GOODRICH in to pt room and explained the above. Explained palliative services, pt is agreeable. Also spoke to pt that therapy is recommending additional therapy and asked if he would be agreeable to some HHC. Pt said probably. Patient was provided a list of HHC providers including quality and resource use data and consistent with the patient?s preferred geographic region, medical needs, and insurance network. ASHLEIGH GOODRICH to check back with patient on preference. Notifed Alanna at Palliative per that pt is agreeable to eval.
[2021-02-16 12:04] LABS: Platelet Estimate SLT DEC (ADEQ); Red Cell Morphology NORM C+C NORMAL (NORM C&C)
--- NOTE | 2021-02-16 13:30 | US_ITS ---
STUDY: ABDOMINAL ULTRASOUND - ascites survey REASON FOR VISIT: Male, 85 years old Malignant ascites TECHNIQUE: Ultrasound evaluation of the 4 quadrants was performed with real-time and static virk-scale imaging. TECHNICAL QUALITY: Adequate. COMPARISON: None. FINDINGS: The 4 quadrants were assessed for ascites. No significant ascites is seen. US/Abdomen Limited IMPRESSION: No significant amount of ascites is present. There is suggestion of omental metastasis. Electronically Signed: Alfredo Fall MD at 14:45 EDT , Service support ,
[2021-02-16 13:58] VITALS: BP 90/63; PULSE 91; RESP 18; O2SAT 98
[2021-02-16] MEDS: 0.9% Saline Lock 10 ML Syringe IV (14:24)
[2021-02-16 14:25] VITALS: BP 113/69; PULSE 95; RESP 16; TEMP 36.7; O2SAT 97
--- NOTE | 2021-02-16 15:15 | CON.PCM.PA_ITS ---
Assessment & Plan Assessment/Plan (1) Nausea & vomiting: (2) Weakness: (3) Adult failure to thrive: (4) Colon cancer metastasized to bone: (5) Clostridium difficile diarrhea: PLAN: 85-year-old male with metastatic colon cancer to bone, seen today for progressive weakness, current C. difficile infection to complicate his mobility issues, and adult failure to thrive. 1. Nausea and vomiting: This seems to be okay for the time being, has not really required much Zofran. If he continues with chemotherapy and has significant symptoms, would suggest olanzapine for management of chemo-induced N/V. Also would increase the Zofran to 8 mg every 8 hours PRN. But for now, leave Zofran at 4 mg every 8 hours PRN 2. Weakness and debility/FTT: Multifactorial including the above, in addition to current chemotherapy regimen. He is receiving therapy. There are plans for home health care through [facility] on discharge. Potential discharge 02/17. 3. C. difficile infection: He has been treated with IV fluid repletion and vancomycin. Defer management 4. History of colon cancer metastatic to bone: Abdominal ultrasound today in preparation for paracentesis had findings that were suggestive of omental metastasis. CT also showing possible pulmonary metastasis, omental metastasis, and potential splenic metastasis. He is following with Dr. Thornton [facility] oncology. Unclear what his treatment plan is at this time, but the above findings suggest the need for close follow-up at discharge and possible hospice in the near future depending upon oncology recommendations. We discussed palliative services patient seemed open to liaison visit and possible enrollment. Thank you for the opportunity to participate in this patient's care, please do not hesitate to contact [facility] with any further questions or concerns. Palliative direct line is [phone]. We will follow up after discharge and will discuss palliative services further at that time. Greater than 50% of F2F visit dedicated to education and counseling of palliative care services, medications, comorbid conditions and potential assistance with management, and plan of care moving forward. Start time: 1500 End time: 1600 HPI Consult Data Date of Consult: 02/16/21 HPI Narrative HPI Narrative: SARMAD MOY, is a 85 M who presented to [facility] 02/14/2020 with complaints of nausea, vomiting, and diarrhea. Patient has history of colon cancer and currently receiving chemotherapy. The nausea and vomiting have been going on for several months but recently intensified. It is making him very weak and fatigued so presented to the ED for further evaluation. CT the abdomen/pelvis showed diffuse ascites and omental metastasis, a gallstone within a contracted gallbladder, left large renal cyst, prostatic enlargement, and diffuse circumferential thickening of the terminal ileum suggestive of inflammation. Patient was diagnosed with C. difficile as an outpatient. He was admitted to the hospital for further evaluation and management. Patient follows with Dr. Thornton for oncology. He had called their office on the day of admission due to his worsening weakness and was referred to the ED. Blood work was relatively unremarkable in the ED. He was given IV fluids and vancomycin initiated. He also has Zofran and Mylanta for nausea and vomiting. Physical therapy is following the patient. Patient actually went to interventional radiology for possible paracentesis today, however there was no fluid to drain per nursing staff. He is somewhat lethargic so was not dis charged today as originally planned. There is potential discharge home for tomorrow. Patient was referred to palliative care June 2020 by oncology but had declined services at that time. He is now agreed to palliative care consult due to the persistent weakness. The patient lives with his son in a two-story home. He is typically independent with ADLs at home and able to ambulate on stairs. DME in the home include shower chair, BSC, cane, walker, Rollator, grab bars, and medical alert. He does not have a living will or POA. He uses [facility] for pharmacy. The plan is for discharge home with home health care, however patient reports he had home health in the past and they were unnecessary. Current medication for his nausea and vomiting include Zofran 4 mg IV every 8 hours PRN. He is not on anything for pain at home other than gabapentin 300 mg at bedtime. He has only been given Zofran 1 time 02/13 in the evening. Patient does admit he has some intermittent nausea and vomiting, however it is more abdominal discomfort than anything. He does get crampy. His bottom is sore and he is getting calmoseptine applied routinely. He states he is still very weak. He feels his fluid is really going to start accumulating in his belly as soon as he goes home. He does not have any shortness of breath or chest pain. He does feel bloated. No current vision changes, dizziness, syncope. No lower extremity edema. He does have some chronic pain related to his cancer but that is typically well controlled with marijuana/Gummies. He is still smoking cigarettes as well. [facility] Medical History Colon cancer Diabetes High cholesterol Hypertension Kidney stones Smoker Home Medications amlodipine 5 mg PO DAILY 02/13/21 [History Last Taken 02/13/21] aspirin 325 mg PO QHS 02/13/21 [History Last Taken 02/12/21] diphenoxylate-atropine 1 tab PO 4X/DAY 02/13/21 [History Last Taken 02/13/21] gabapentin 300 mg PO QHS 02/13/21 [History Last Taken 02/12/21] glimepiride 4 mg PO BID 02/13/21 [History Last Taken 02/13/21] metformin 850 mg PO BIDCM 02/13/21 [History Last Taken 02/13/21] Allergy/AdvReac Type Severity Reaction Status Date / Time No Known Allergies Allergy Verified 01/20/16 10:39 Family History Father , Denies any known history of HTN, CAD or DM2 No problems noted. Mother , Denies any known history of HTN, CAD or DM2 No problems noted. Surgical History H/O transurethral resection of prostate History of colon surgery Social History household members: children housing: house Smoking Status: Current every day smoker tobacco type: cigarettes Tobacco: How many years used: 60 alcohol intake: former substance use type: marijuana additional social history: Patient endorses using edible marijuana gummies for his cancer related pain. ROS ROS Narrative Review of systems otherwise negative from a constitutional, HEENT, respiratory, cardiovascular, GI, genitourinary, musculoskeletal, skin, neurologic, psychiatric and hematologic system unless stated above. Physical Exam Const alert, oriented x3 and no apparent distress General Appearance: cooperative HEENT normocephalic and head/scalp atraumatic Eyes Eyes Narrative: Wearing glasses General Eye: normal appearance of both eyes Neck supple General: trachea midline Resp normal respiratory effort and clear to auscultation bilaterally Auscultation: diminished lung sounds Cardio regular rate, regular rhythm, S1 normal heart sound and S2 normal heart sound GI Inspection: abdominal distention Auscultation: normoactive bowel sounds Palpation: firm and tender Extremity no clubbing, cyanosis or edema Skin Rashes: no rashes Neuro CN's II-XII intact bilaterally and no focal motor deficits Psych cooperative Appearance: appropriate Attitude: calm Activity / Motor Behavior: appropriate eye contact Speech: normal speech Mood & Affect: flat affect
[2021-02-16 16:51] LABS: Bedside Glucose 140 mg/dL (70-110)
[2021-02-16 21:58] VITALS: BP 119/70; PULSE 102; RESP 17; TEMP 37; O2SAT 92
[2021-02-16] MEDS: Aspirin 325 MG Tablet PO (22:07)
[2021-02-16 22:11] LABS: Bedside Glucose 197 mg/dL (70-110)
[2021-02-17 02:52] VITALS: BP 118/78; PULSE 83; RESP 16; TEMP 36.4; O2SAT 95
[2021-02-17] MEDS: Menthol/Lanolin/Calamine/Znox 113 GM Tube 1 APPLIC TOPICAL (06:41)
[2021-02-17] MEDS: Vancomycin 125 MG/5 ML Susp PO.SYRINGE PO ×2 (06:42→12:10)
--- NOTE | 2021-02-17 07:45 | DS.PCM_ITS ---
Providers Date of Admission: 02/13/21 Primary Care Physician: Dr. Caron Galeano MD Reason For Visit: ACUTE DIARRHEA Diagnosis Discharge Diagnosis (1) Nausea & vomiting: Status: Acute Code(s): R11.2 - Nausea with vomiting, unspecified (2) Weakness: Status: Acute Code(s): R53.1 - Weakness (3) Adult failure to thrive: Status: Acute Code(s): R62.7 - Adult failure to thrive (4) Colon cancer metastasized to bone: Status: Acute Code(s): C18.9 - Malignant neoplasm of colon, unspecified; C79.51 - Secondary malignant neoplasm of bone (5) Clostridium difficile diarrhea: Status: Acute Code(s): A04.72 - Enterocolitis due to Clostridium difficile, not specified as recurrent Medications at Discharge Home Medications amlodipine 5 mg PO DAILY 02/13/21 aspirin 325 mg PO QHS 02/13/21 gabapentin 300 mg PO QHS 02/13/21 glimepiride 4 mg PO BID 02/13/21 metformin 850 mg PO BIDCM 02/13/21 food supplemt, lactose-reduced [Ensure Enlive] 120 ml PO 4X/DAY #120 ea 02/17/21 vancomycin [Firvanq] 125 mg PO Q6 #40 tab-cap 02/17/21 Hospital Course Summary of Care Provided Minutes Spent on Discharge: 35 Hospital Course: 85-year-old male with past medical history of metastatic colon CA, mets to bone, follows with Dr. Thornton in the outpatient comes in with complaints of diarrhea. Patient was diagnosed with acute C. difficile in the outpatient 1. Acute C. diff, slowing improving Patient has been managed with vancomycin symptoms significantly improved -02/17/2021 discharge home with home health with 10 additional days of p.o. vancomycin 2. Ascites ?Suspected to secondary to malignant ascites from metastatic colon CA patient scheduled to undergo diagnostic and therapeutic paracentesis 3. Severe protein calorie malnutrition secondary to #1 and 2 Bilingual Speech Language Pathologist consulted, continue on supplements 4. Metastatic colon CA with mets to bone and ascites On immunotherapy, follows with Dr. Thornton Continue with pain control 5. Hypertension - Blood pressure controlled, home medications continued with dose adjustment as needed 6. Diabetes mellitus type II uncontrolled with episodes of hypoglycemia -patient's oral hypoglycemics held. Placed on Accu-Cheks a.c. and at bedtime and covered with sliding scale insulin 7. Physical deconditioning - Requested for PT OT eval and public health social worker to assist with discharge planning 8. DVT prophylaxis ?Held in anticipation of patient's paracentesis Physical Exam Narrative GENERAL: cooperative HEENT: Atraumatic; EYES; Anicteric, Normal Conjunctiva NECK; supple, normal thyroid, RESPIRATORY: Diminished to auscultation CARDIOVASCULAR: Regular S1 S2, GI: Abdomen slightly distended : No Renal angle tenderness; EXTREMITIES: No edema, no clubbing, MUSCULOSKELETAL: no muscle waisting NEURO: Awake; no lateralizing signs. SKIN: No Rash PSYCH; Flat affect Medical Records Data Medical Nutrition Assessment Dietitian: Malnutrition Criteria Met Start: 02/13/21 16:42 Freq: Status: Active Protocol: Document 02/13/21 16:51 AG (Rec: 02/13/21 16:51 AG [id number]) Nutrition Malnutrition Evidence of Malnutrition Exists Yes Malnutrition (severe): Acute Illness/Injury Evidenced By Suboptimal Energy Intake ( Severe),Weight Loss (Severe) Clinical Problem Acute Disease or Injury Related Malnutrition Etiology severe, acute malnutrition r/t inadequate energy intake w/ increased energy needs d/t cancer Signs/Symptoms as evidenced by unintentional wt loss of 11.5#/7.3% x 2 weeks; estimated PO intake meeting <50% of estimated nutritional needs x 2 weeks Status Active Problem Recommendation Dietitian Recommendations/Changes continue regular diet d/t acute malnutrition; will add 120mL ensure enlive 4x/day Weight / BMI Weight Weight: 69.944 kg Body Mass Index (BMI) 22.1 ABG / Lab / Microbiology Data Result Diagrams: 02/16/21 11:02 02/16/21 11:02 Laboratory: Laboratory Results - last 24 hr 02/16/21 11:02: PT 16.3 H, INR 1.4, APTT 35.7 02/16/21 11:02: WBC 2.1 L, RBC 3.12 L, Hgb 10.1 L, Hct 30.9 L, MCV 99.0 H, MCH 32.4 H, MCHC 32.7, RDW Std Deviation 53.0 H, RDW Coeff of Ortega 14.5, Plt Count 1 12 L, MPV 9.3, Immature Gran % (Auto) 0.500, Neut % (Auto) 19.6 L, Lymph % (Auto) 59.3 H, [place] % (Auto) 13.9 H, Eos % (Auto) 5.7 H, Baso % (Auto) 1.0, Absolute Neuts (auto) 0.4 L, Absolute Lymphs (auto) 1.24, Nucleated RBC % 0, Differential Comment , Platelet Estimate SLT DEC, RBC Morphology NORM C+C 02/16/21 11:02: Sodium 137, Potassium 3.9, Chloride 111 H, Carbon Dioxide 22.0, Anion Gap 4 L, BUN 18, Creatinine 1.26, Estim Creat Clear Calc 40.71, Est GFR (MDRD) Af Amer 70, Est GFR (MDRD) Non-Af 58 L, BUN/Creatinine Ratio 14.3, Glucose 280 H, Calcium 7.1 L, Magnesium 1.9 02/16/21 11:13: POC Glucose 257 H 02/16/21 16:35: POC Glucose 140 H 02/16/21 22:01: POC Glucose 197 H Microbiology: Microbiology 02/14/21 05:30 Urine, Midstream Urine Culture - Final Aerococcus viridans. Mixed Gram Pos & Gram Neg Org 02/13/21 16:55 Stool Enteric Bacteriology - Final 02/13/21 15:15 Mucosa - Nose SARS-CoV-2 Antigen (Rapid) - Final Radiography Diagnostic Testing: Radiology Impression Abdomen Ultrasound 02/16/21 13:30 IMPRESSION: No significant amount of ascites is present. There is suggestion of omental metastasis. Electronically Signed: Alfredo Flal MD at 14:45 EDT , Service support , D/C Instructions Discharge Diet: No restrictions and 1800 Calorie Control Diet Discharge Activity: Return to Normal Activity Call your doctor if you observe: Fever of 101 or Higher, Shortness of breath, Fainting spells, Chest pain and Uncontrolled pain Meaningful Use Info Meaningful Use Diagnoses (Choose all that apply): None applicable Discharge Plan Admission Admit Date/Time: 02/13/21 14:52 Primary Reason for Your Visit: Acute C. difficile colitis Attending Provider: Miguel Edwards Primary Care Provider: Caron Galeano Instructions Patient Instructions: Paracentesis, Paracentesis Dc Discharge Orders/Prescriptions Prescriptions: New Ensure Enlive 0.08 gram-1.5 kcal/mL Liquid 120 ml PO 4X/DAY Qty: 120 RF: 0 Firvanq 25 mg/mL Recon Soln 125 mg PO Q6 Qty: 40 RF: 0 Continued aspirin 325 mg Tablet 325 mg PO QHS RF: 0 metformin 850 mg tablet 850 mg PO BIDCM RF: 0 amlodipine 5 mg tablet 5 mg PO DAILY RF: 0 glimepiride 4 mg tablet 4 mg PO BID RF: 0 gabapentin 300 mg capsule 300 mg PO QHS RF: 0 Discontinued diphenoxylate-atropine 2.5-0.025 mg tablet 1 tab PO 4X/DAY RF: 0 Referrals / Follow Up: Caron Galeano MD [Primary Care Provider] - In 1 Week Disposition Disposition (needs filled in before D/C Order can be placed): Home Health Service Charges/Coding Visit Charges Inpatient E&M: 26013 Disch Hosp
[2021-02-17] MEDS: amLODIPine 5 MG Tablet PO (09:36)
[2021-02-17 09:45] VITALS: BP 110/61; PULSE 90; RESP 18; TEMP 36.8; O2SAT 98
[2021-02-17 10:55] VITALS: O2SAT 98
[2021-02-17 11:20] LABS: Bedside Glucose 144 mg/dL (70-110)
[2021-02-17] MEDS: Insulin Lispro 100 UNIT/ML INSULN.PEN SC (12:10)
[2021-02-17 12:21] LABS: Bedside Glucose 233 mg/dL (70-110)
--- NOTE | 2021-02-17 12:34 | NURSING ---
Pt refused breakfast and lunch. Breakfast was already ordered and came to pt but refused it. Pt still wanted his 2 units of insulin despite no lunch.
--- NOTE | 2021-02-17 14:35 | CASEMGMT ---
Spoke with [facility], aware pt is being dc'd today. Faxed dc summary.
[2021-02-17] MEDS: 0.9% Saline Lock 10 ML Syringe IV (15:53)
[2021-02-17 15:57] VITALS: BP 131/78; PULSE 100; RESP 16; TEMP 36.4; O2SAT 98
--- NOTE | 2021-02-18 14:13 | CASEMGMT ---
RN CM Discharge Follow Up Phone Call: BEKAE: Anastacio Strata: 3 Call Date: 02/18/21 Discharge Date: 02/17/21 Time of Call:1414 Duration:<1min Admitting Dx:acute diarrhea RN JOLEEN attempted to complete follow up phone call after recent hospitalization. Received vm message. No message left.
--- NOTE | 2021-02-18 14:51 | CASEMGMT ---
ASHLEIGH GOODRICH received request for prior auth for PO vancomycin. ASHLEIGH GOODRICH completed prior auth over the phone with Laura. PO Vancomycin auth was approved Auth# [id number]. ASHLEIGH GOODRICH called and update Pharmacist Michael at [facility], [place] and states that they will reach out to patient as well. ASHLEIGH GOODRICH called patient number and went to voicemail but states name is Trae. ASHLEIGH GOODRICH called and left message with Son Long to return call and provided contact number.
== END 2021-02-17 16:15 | disposition home health service (06) | DRG 371 ==
LOC: ED 14:41 → MS3 15:26
PROVIDERS: Admitting Provider Internal Medicine; Emergency Provider Emergency Medicine; PCP Internal Medicine; Visit Provider Internal Medicine
DX: A04.72 Enterocolitis due to Clostridium difficile, not specified as recurrent (principal); E43 Unspecified severe protein-calorie malnutrition; C18.9 Malignant neoplasm of colon, unspecified; C79.51 Secondary malignant neoplasm of bone; C78.6 Secondary malignant neoplasm of retroperitoneum and peritoneum; R18.0 Malignant ascites; E11.65 Type 2 diabetes mellitus with hyperglycemia; E11.649 Type 2 diabetes mellitus with hypoglycemia without coma; F17.210 Nicotine dependence, cigarettes, uncomplicated; G89.3 Neoplasm related pain (acute) (chronic); E11.40 Type 2 diabetes mellitus with diabetic neuropathy, unspecified; Z66 Do not resuscitate; I10 Essential (primary) hypertension; E78.00 Pure hypercholesterolemia, unspecified; Z79.82 Long term (current) use of aspirin; Z79.4 Long term (current) use of insulin; Z79.899 Other long term (current) drug therapy; Z68.22 Body mass index [BMI] 22.0-22.9, adult; R62.7 Adult failure to thrive
CPT/HCPCS: 36415; 36591; 74177; 76705; 80048; 80053; 81001; 82962; 83735; 85025; 85610; 85730; 87077; 87086; 87088; 87426; 87506; 97110; 97162; 97166; 97802; 99285; 99406; J7030; Q9967; A4216; J2405

== ENCOUNTER 2021-02-23 12:25 | Emergency (ER) | payer MEDICARE, MEDICAID, SELFPAY ==
[2021-02-23 12:26] VITALS: BP 124/90; PULSE 88; RESP 19; TEMP 37.1; O2SAT 100; BMI 21.9
--- NOTE | 2021-02-23 12:56 | EX.ED.DYSGE1 ---
HPI History of Present Illness Chief Complaint: Complaint Informant: patient Narrative Narrative: Patient is a 85-year-old male with a past medical history of colon cancer with metastasis who presents to the emergency department for diarrhea. He states that he was just discharged from the hospital last week for C. difficile infection. He was supposed to get a prescription of oral vancomycin but states that this was never sent to the pharmacy so he never got it filled. He was doing well until last night when he has had close to 14 episodes of nonbloody diarrhea. He denies any nausea or vomiting. He is having diffuse abdominal discomfort. Denies any chest pain or shortness of breath. He states it is difficult and hurts to urinate starting last night as well. PFSH PFSH Medical History Colon cancer Diabetes High cholesterol Hypertension Kidney stones Smoker Home Medications amlodipine 5 mg PO DAILY 02/13/21 [History Last Taken 02/13/21] aspirin 325 mg PO QHS 02/13/21 [History Last Taken 02/12/21] gabapentin 300 mg PO QHS 02/13/21 [History Last Taken 02/12/21] glimepiride 4 mg PO BID 02/13/21 [History Last Taken 02/13/21] metformin 850 mg PO BIDCM 02/13/21 [History Last Taken 02/13/21] food supplemt, lactose-reduced [Ensure Enlive] 120 ml PO 4X/DAY #120 ea 02/17/21 [Rx Last Taken Unknown] nitrofurantoin monohyd/m-cryst [Macrobid] 100 mg PO Q12H 7 Days #14 cap 02/23/21 [Rx Last Taken Unknown] vancomycin 125 mg PO Q6H 10 Days #40 cap 02/23/21 [Rx Last Taken Unknown] Allergy/AdvReac Type Severity Reaction Status Date / Time No Known Allergies Allergy Verified 02/23/21 12:28 Family History Father , Denies any known history of HTN, CAD or DM2 No problems noted. Mother , Denies any known history of HTN, CAD or DM2 No problems noted. Surgical History H/O transurethral resection of prostate History of colon surgery Social History household members: children housing: house Smoking Status: Current every day smoker tobacco type: cigarettes Tobacco: How many years used: 60 alcohol intake: former substance use type: marijuana additional social history: Patient endorses using edible marijuana gummies for his cancer related pain. ROS ROS ED Constitutional Constitutional ED: Denies chills or fever(s) Eyes Eyes: Denies change in vision ENT ENT ED: Denies epistaxis or rhinorrhea Cardiovascular Cardiovascular: Denies chest pain or palpitations Respiratory/Chest Respiratory/Chest: Denies cough, dyspnea or dyspnea on exertion Gastrointestinal Gastrointestinal: Reports abdominal pain and diarrhea; Denies nausea or vomiting Genitourinary Genitourinary ED: Denies hematuria or urinary frequency Musculoskeletal Musculoskeletal: Denies back pain or neck pain Integumentary Denies rash Neurologic Neurologic: Denies dizziness, headache(s) or weakness EXAM Physical Exam Const Vital Signs: 02/23/21 12:26 02/23/21 13:09 02/23/21 14:37 Temperature 98.7 F 97.8 F Temperature Source Temporal Temporal Pulse Rate 88 80 72 Respiratory Rate 19 H 16 15 Blood Pressure 124/90 H 133/78 H 127/76 H Blood Pressure Mean 101 96 93 Pulse Ox 100 99 98 Oxygen Delivery Method Room Air Room Air Room Air Positive well nourished and well developed General Appearance ED: well developed and NAD HEENT Reports normocephalic and head/scalp atraumatic Eyes PERRL and EOMs intact bilaterally Neck supple Chest Wall inspection of chest normal Resp normal respiratory effort and clear to auscultation bilaterally Auscultation: Negative for rales, rhonchi or wheezes Cardio regular rate, regular rhythm and no murmurs GI GI Narrative: Mild abdominal distention, diffuse tenderness. Normal active bowel sounds. Palpation: Negative for guarding or rebound tenderness present Extremity normal to inspection General Extremety ED: Negative for edema or tenderness General Extremity: Negative for edema Neuro Sensorium / Orientation: alert Motor Exam: strength 5/5 throughout Psych mental status grossly normal Skin no rashes or lesions noted MDM MDM MDM Narrative Medical decision making narrative: Patient presents the ED for diarrhea. Patient was supposed to be sent home with vancomycin for C. difficile infection from the recent hospital stay but he states that this was never filled. He started to have diarrhea again last night. On arrival to the ED vital signs within normal limits. He is in no acute distress. Patient's lab work showed improvement in his white blood cell count from previous hospital stay. No significant electrolyte disturbance. Patient did have a Contreras catheter placed as he was having difficulty passing urine. This did show sediment and was positive for urinary tract infection. Given the fact he is C. difficile infection will trial Macrobid. He will be placed on the oral vancomycin which she was supposed to be placed on whenever he was discharged. Patient does appear well and does feel comfortable going home at this time. I did speak with his PCP who is going to follow-up with the patient. If he develops any worsening symptoms he needs return back to the emergency department for reevaluation. This time he is discharged home in stable condition. All questions are answered. Lab Data Labs: Laboratory Results - last 24 hr 02/23/21 02/23/21 02/23/21 13:20 13:20 13:30 WBC Cancelled Corrected WBC Cancelled RBC Cancelled Hgb Cancelled Hct Cancelled MCV Cancelled MCH Cancelled MCHC Cancelled RDW Std Deviation Cancelled RDW Coeff of Ortega Cancelled Plt Count Cancelled MPV Cancelled Immature Gran % (Auto) Cancelled Neut % (Auto) Cancelled Lymph % (Auto) Cancelled [place] % (Auto) Cancelled Eos % (Auto) Cancelled Baso % (Auto) Cancelled Absolute Neuts (auto) Cancelled Absolute Lymphs (auto) Cancelled Total Counted Cancelled Neutrophils % (Manual) Cancelled Band Neutrophils % Cancelled Lymphocytes % (Manual) Cancelled Monocytes % (Manual) Cancelled Eosinophils % (Manual) Cancelled Basophils % (Manual) Cancelled Metamyelocytes % Cancelled Myelocytes % Cancelled Promyelocytes % Cancelled Blast Cells % Cancelled Plasma Cell % (Manual) Cancelled Other Cells % Cancelled Nucleated RBC % Cancelled Nucleated RBCs/100 WBC Cancelled Differential Comment Cancelled Diff Path Review Cancelled Hypersegmented Neuts Cancelled Atypical Lymphocytes Cancelled Reactive Lymphocytes Cancelled Smudge Cells Cancelled Toxic Granulation Cancelled Toxic Vacuolation Cancelled Dohle Bodies Cancelled Rosario Rods Cancelled Platelet Estimate Cancelled Plt Morphology Comment Cancelled RBC Morphology Cancelled Polychromasia Cancelled Hypochromasia Cancelled Poikilocytosis Cancelled Basophilic Stippling Cancelled Anisocytosis Cancelled Microcytosis Cancelled Macrocytosis Cancelled Spherocytes Cancelled Sickle Cells Cancelled Target Cells Cancelled Tear Drop Cells Cancelled Ovalocytes Cancelled Stomatocytes Cancelled [place] Bodies Cancelled [place] Cells Cancelled Bite Cells Cancelled Crenated Cell Cancelled Acanthocytes (Spur) Cancelled Rouleaux Cancelled Schistocytes Cancelled Sodium 135 L Potassium 4.2 Chloride 107 Carbon Dioxide 23.0 Anion Gap 5 BUN 12 Creatinine 1.01 Estim Creat Clear Calc 48.50 Est GFR (MDRD) Af Amer 90 Est GFR (MDRD) Non-Af 74 BUN/Creatinine Ratio 11.9 Glucose 129 H Calcium 8.6 Total Bilirubin 0.40 AST 17 ALT 18 Alkaline Phosphatase 83 Total Protein 6.0 L Albumin 2.5 L Globulin 3.5 Albumin/Globulin Ratio 0.7 L Urine Color Yellow Urine Clarity Sl. Cloudy Urine pH 7.0 Ur Specific [place] 1.005 Urine Protein 15 H Urine Glucose (UA) 50 H Urine Ketones Negative Urine Occult Blood 50 H Urine Nitrite Positive H Urine Bilirubin Negative Urine Urobilinogen Normal Ur Leukocyte Esterase 100 H Urine RBC 0 SEEN Urine WBC 0-5 SEEN Ur Squamous Epith Cells 0 SEEN Urine Bacteria 3+ Urine Mucus 0 SEEN 02/23/21 14:25 WBC 7.6 Corrected WBC RBC 3.45 L Hgb 11.0 L Hct 32.8 L MCV 95.1 H MCH 31.9 MCHC 33.5 RDW Std Deviation 53.8 H RDW Coeff of Ortega 15.7 H Plt Count 252 MPV 8.7 Immature Gran % (Auto) 1.700 H Neut % (Auto) 65.3 Lymph % (Auto) 21.5 [place] % (Auto) 8.6 Eos % (Auto) 2.4 Baso % (Auto) 0.5 Absolute Neuts (auto) 5.0 Absolute Lymphs (auto) 1.63 Total Counted Neutrophils % (Manual) Band Neutrophils % Lymphocytes % (Manual) Monocytes % (Manual) Eosinophils % (Manual) Basophils % (Manual) Metamyelocytes % Myelocytes % Promyelocytes % Blast Cells % Plasma Cell % (Manual) Other Cells % Nucleated RBC % 0 Nucleated RBCs/100 WBC Differential Comment Diff Path Review Hypersegmented Neuts Atypical Lymphocytes Reactive Lymphocytes Smudge Cells Toxic Granulation Toxic Vacuolation Dohle Bodies Rosario Rods Platelet Estimate Plt Morphology Comment RBC Morphology Polychromasia Hypochromasia Poikilocytosis Basophilic Stippling Anisocytosis Microcytosis Macrocytosis Spherocytes Sickle Cells Target Cells Tear Drop Cells Ovalocytes Stomatocytes [place] Bodies [place] Cells Bite Cells Crenated Cell Acanthocytes (Spur) Rouleaux Schistocytes Sodium Potassium Chloride Carbon Dioxide Anion Gap BUN Creatinine Estim Creat Clear Calc Est GFR (MDRD) Af Amer Est GFR (MDRD) Non-Af BUN/Creatinine Ratio Glucose Calcium Total Bilirubin AST ALT Alkaline Phosphatase Total Protein Albumin Globulin Albumin/Globulin Ratio Urine Color Urine Clarity Urine pH Ur Specific [place] Urine Protein Urine Glucose (UA) Urine Ketones Urine Occult Blood Urine Nitrite Urine Bilirubin Urine Urobilinogen Ur Leukocyte Esterase Urine RBC Urine WBC Ur Squamous Epith Cells Urine Bacteria Urine Mucus Discharge Plan Triage Chief Complaint: Complaint ED Provider: Kyle Retana Dx/Rx/DC Orders Clinical Impression: UTI (urinary tract infection), Diarrhea, Urinary retention Instructions: Urinary Tract Infections in Men, ED Contreras Catheter, Care, C diff Prescriptions: New nitrofurantoin monohyd/m-cryst [Macrobid] 100 mg capsule 100 mg PO Q12H 7 Days Qty: 14 RF: 0 vancomycin 125 mg capsule 125 mg PO Q6H 10 Days Qty: 40 RF: 0 No Action aspirin 325 mg Tablet 325 mg PO QHS RF: 0 metformin 850 mg tablet 850 mg PO BIDCM RF: 0 amlodipine 5 mg tablet 5 mg PO DAILY RF: 0 glimepiride 4 mg tablet 4 mg PO BID RF: 0 gabapentin 300 mg capsule 300 mg PO QHS RF: 0 Ensure Enlive 0.08 gram-1.5 kcal/mL Liquid 120 ml PO 4X/DAY Qty: 120 RF: 0 Primary Care Provider: Caron Galeano Referrals: Caron Galeano MD [Primary Care Provider] - 2 Days Disposition Disposition: Home, Self Care
[2021-02-23 13:09] VITALS: BP 133/78; PULSE 80; RESP 16; O2SAT 99
[2021-02-23 13:47] LABS: Mucous, Urine 0 SEEN /hpf (<or=2+); Red Blood Cells-Urine 0 SEEN /hpf (0-5); Squamous Epithelial Cells - UA 0 SEEN /hpf (0-5)
[2021-02-23 13:51] LABS: Color, Urine Yellow (Yellow); Glucose, Dipstick 50 mg/dl (Normal); Ketone-Dipstick Negative (Negative); Leukocyte Esterase-Dipstick 100 /ul (Negative); Nitrite-Dipstick Positive (Negative); Occult Blood-Urine 50 /ul (Negative); Protein-Dipstick 15 mg/dl (Negative); Specific Gravity, Urine 1.005 (1.002-1.030); Urine Bilirubin Dipstick Negative (Negative); Urine Clarity Sl. Cloudy (Clear); Urine Urobilinogen Normal (Normal)
[2021-02-23 13:57] LABS: Bacteria 3+ /hpf (None Seen); White Blood Cells 0-5 SEEN /hpf (0-5)
[2021-02-23 14:03] LABS: ALB/GLOB Ratio 0.7 RATIO (0.9-2.4); AST(SGOT) 17 U/L (15-37); Alanine Aminotransfer ALT/SGPT 18 U/L (16-61); Albumin, Serum 2.5 g/dL (3.2-5.0); Alkaline Phosphatase 83 U/L (45-117); Anion Gap 5 (5-15); BUN 12 mg/dL (7-18); BUN/Creat Ratio 11.9 RATIO (10-20); Calcium,Total 8.6 mg/dL (8.5-10.1); Chloride 107 mmol/L (98-107); Creatinine, Serum 1.01 mg/dL (0.70-1.30); EST Glomerular Filtration Rate 74 mL/min (>60); Est Glom Filt Rate - Afr Amer 90 mL/min (>60); Globulin 3.5 g/dL (2.2-4.2); Glucose 129 mg/dL (74-106); Potassium 4.2 mmol/L (3.5-5.1); Sodium Level 135 mmol/L (136-145)
[2021-02-23 14:37] VITALS: BP 127/76; PULSE 72; RESP 15; TEMP 36.6; O2SAT 98
[2021-02-23 14:43] LABS: Absolute Lymphocyte Count 1.63 X10^3/uL (0.83-4.51); Basophil# 0.04 X10^3/uL; Basophil% 0.5 % (0-1); Eosinophil# 0.18 X10^3/uL; Eosinophils% 2.4 % (0-5); Hematocrit 32.8 % (40-54); Lymphocyte # 1.63 X10^3/ul (0.83-4.51); Lymphocyte % 21.5 % (19-41); Mean Corp Hgb Conc 33.5 g/dL (32-36); Mean Corpuscular Hgb 31.9 pg (27.0-32.0); Mean Corpuscular Volume 95.1 fL (80-94); Mean Platelet Vol. 8.7 fl (6.2-12.0); Monocyte# 0.65 X10^3/uL; Monocyte% 8.6 % (0-10); NRBC Flagged by Analyzer 0 % (0-5); Neutrophil # 4.95 X10^3/uL (2.7-7.7); Neutrophil % 65.3 % (47-70); Platelet Count 252 K/mm3 (150-450); RBC Distribution Width CV 15.7 % (11.6-14.6); RBC Distribution Width SD 53.8 fl (35.1-43.9); Red Blood Count 3.45 M/mm3 (4.6-6.2); White Blood Count 7.6 K/mm3 (4.4-11.0)
[2021-02-23 15:52] VITALS: BP 134/64; PULSE 78; PULSE 79; RESP 15; RESP 16; TEMP 36.8; O2SAT 97; O2SAT 98
[2021-02-23] MEDS: Nitrofurantoin Macrocrystals 100 MG Capsule PO (15:53)
[2021-02-23] MEDS: Vancomycin 125 MG/5 ML Susp PO.SYRINGE PO (15:53)
[2021-02-23 15:56] VITALS: BP 134/64; PULSE 81; RESP 15; O2SAT 98
== END 2021-02-23 16:16 | disposition home or self-care (01) ==
PROVIDERS: Emergency Provider Emergency Medicine; PCP Internal Medicine
DX: N39.0 Urinary tract infection, site not specified (principal); R19.7 Diarrhea, unspecified; R33.9 Retention of urine, unspecified; E11.9 Type 2 diabetes mellitus without complications; F17.210 Nicotine dependence, cigarettes, uncomplicated; I10 Essential (primary) hypertension; Z79.82 Long term (current) use of aspirin; Z79.84 Long term (current) use of oral hypoglycemic drugs; Z87.442 Personal history of urinary calculi; Z79.899 Other long term (current) drug therapy
CPT/HCPCS: 51702; 80053; 81001; 85025; 87077; 87086; 87088; 87186; 99285

== ENCOUNTER 2021-05-09 18:33 | Emergency (ER) | payer MEDICARE, MEDICAID, SELFPAY ==
[2021-05-09 18:35] VITALS: BP 120/72; PULSE 68; PULSE 77; RESP 14; RESP 15; TEMP 36.5; O2SAT 98; BMI 21.2
--- NOTE | 2021-05-09 18:50 | EDS_ITS ---
HPI History of Present Illness Chief Complaint: Abd Pain Detail of Chief Complaint: Decreased appetite not abdominal pain. Informant: patient and family Onset/Context/Timing Onset: Days Context: Gradual Onset Timing: Continuous Current Severity: Mild Maximum Severity: Mild Narrative Narrative: 85-year-old male history of colon CA with metastases. Patient states last 4 days just has not felt well and he does not have any appetite. He is taking p.o. fluids. He also has a history of diabetes. States he has had history of enlarged prostate and is having difficulty urinating. He denies any dysuria. He denies any fever. He denies any vomiting. He does have diarrhea he has had for weeks and is currently on vancomycin for C. difficile. He denies any melena. Prior similar symptoms: Yes Recent Illness/Hospitalization: No PFSH PFSH Medical History Colon cancer Diabetes High cholesterol Hypertension Kidney stones Smoker Home Medications amlodipine 5 mg PO DAILY 02/13/21 [History Last Taken 02/13/21] gabapentin 300 mg PO QHS 02/13/21 [History Last Taken 02/12/21] glimepiride 4 mg PO BID 02/13/21 [History Last Taken 02/13/21] metformin 850 mg PO BIDCM 02/13/21 [History Last Taken 02/13/21] food supplemt, lactose-reduced [Ensure Enlive] 120 ml PO 4X/DAY #120 ea 02/17/21 [Rx Last Taken Unknown] nitrofurantoin monohyd/m-cryst [Macrobid] 100 mg PO Q12H 7 Days #14 cap 02/23/21 [Rx Last Taken Unknown] aspirin 81 mg PO.IVFORM DAILY 05/09/21 [History Last Taken Unknown] diphenoxylate-atropine 1 tab PO Q6H PRN 05/09/21 [History Last Taken Unknown] metoprolol tartrate 12.5 mg PO BID 05/09/21 [History Last Taken Unknown] vancomycin 125 mg PO BID 05/09/21 [History Last Taken Unknown] Allergy/AdvReac Type Severity Reaction Status Date / Time No Known Allergies Allergy Verified 02/23/21 12:28 Family History Father , Denies any known history of HTN, CAD or DM2 No problems noted. Mother , Denies any known history of HTN, CAD or DM2 No problems noted. Surgical History H/O transurethral resection of prostate History of colon surgery Social History household members: children housing: house Smoking Status: Current every day smoker tobacco type: cigarettes Tobacco: How many years used: 60 alcohol intake: former substance use type: marijuana additional social history: Patient endorses using edible marijuana gummies for his cancer related pain. ROS ROS ED ROS Narrative Malaise. Weakness. Diarrhea. Review of Systems ROS Unobtainable: Denies due to encephalopathy Constitutional Constitutional ED: Denies chills or fever(s) Eyes Eyes: Denies change in vision ENT ENT ED: Denies ear pain or sore throat Cardiovascular Cardiovascular: Denies chest pain Respiratory/Chest Respiratory/Chest: Denies cough or dyspnea Gastrointestinal Gastrointestinal: Reports diarrhea; Denies abdominal pain, nausea or vomiting Genitourinary Genitourinary ED: Denies dysuria or hematuria Musculoskeletal Musculoskeletal: Denies myalgias Integumentary Denies rash Neurologic Neurologic: Denies headache(s) Psychiatric Psychiatric: Denies depression Endocrine Endocrinology: Denies polyuria Allergic/Immunologic Allergic/Immunologic ED: Denies urticaria EXAM Physical Exam Narrative Exam Narrative: 85-year-old male appears chronically ill. Vital signs are stable afebrile he does not look septic or toxic. Pulse ox 98% on room air no signs of hypoxia. H EENT exam shows dry mucous membranes. Neck nontender no lymphadenopathy. Lungs clear to auscultation bilaterally. Heart regular rhythm no murmur rate about 80. Abdomen soft nondistended normal bowel sounds no peritoneal signs. No signs of obstruction. Chest wall using Mediport on the right. He is very thin. Cachectic. Moving all 4 extremities nontender. No edema. Neurologically is awake and alert answering questions and following commands. No motor deficits. Const Vital Signs: 05/09/21 18:35 05/09/21 20:42 Temperature 97.7 F L Temperature Source Temporal Pulse Rate 77 76 Respiratory Rate 14 15 Blood Pressure 120/72 123/79 H Blood Pressure Mean 88 93 Pulse Ox 98 98 Oxygen Delivery Method Room Air Room Air Positive cachectic; Negative for obese, contractures or unkempt General Appearance ED: cachectic and NAD; Negative for unkempt, contractures, cyanotic or diaphoretic Nutritional Appearance: cachectic; Negative for obese HEENT Reports dry mucous membranes Negative for trauma or tenderness Mouth ED: Yes dry mucous membranes Mouth: dry mucous membranes Eyes PERRL and EOMs intact bilaterally Neck no lymphadenopathy, supple and no JVD General: Negative for tenderness Chest Wall inspection of chest normal and palpation of chest normal Chest Narrative: Right chest wall Mediport. Resp normal respiratory effort and clear to auscultation bilaterally Auscultation: Negative for rales, rhonchi or wheezes Cardio regular rate, regular rhythm, S1 normal heart sound, S2 normal heart sound and no murmurs GI normal to inspection, nondistended, normoactive bowel sounds, non-tender and non-distended Inspection: Negative for abdominal distention Auscultation: normoactive bowel sounds; Negative for hyperactive bowel sounds or hypoactive bowel sounds Palpation: soft; Negative for tender, guarding or rebound tenderness present Back/Spine no CVA tenderness General Back: Negative for CVA tenderness Cervical Spine: Negative for cervical spine tenderness Extremity normal to inspection General Extremety ED: Negative for edema or tenderness General Extremity: Negative for edema Neuro oriented x3 Sensorium / Orientation: alert Motor Exam: strength 5/5 throughout Psych mental status grossly normal Appearance: Negative for unkempt Attitude: No agitated Mood & Affect: Negative for depressed, anxious or tearful Skin no rashes or lesions noted and no wounds General Skin Exam: Negative for jaundice MDM MDM MDM Narrative Medical decision making narrative: Patient with known colon CA with metastases. States she is not feeling well and has had decreased oral intake. Will be treated with IV fluids and screening labs to be obtained. Abdomen is currently benign. We will do a bladder scan to see if he has urinary retention. Repeat exam at 7:50 PM patient is resting comfortably. He has not urinated as of yet but does not want to be catheterized. His labs are basically chronic he is not acutely dehydrated. I spoke to the patient and his son about all of his labs. He wants to be discharged to home. And follow-up with his oncologist. Lab Data Attestation: I reviewed the patient's lab results. Lab results narrative: CBC shows a white count of 4.4. Hemoglobin 9.7. Platelets 168. Electrolytes unremarkable gap of 5 normal creatinine of 1.1. Liver enzymes are unremarkable. Urinalysis consistent with a UTI with positive nitrates 50-100 white blood cells 5-10 red blood cells and 4+ bacteria. Urine culture will be sent. Patient be started on Cipro twice daily for 10 days. Labs: Laboratory Results - last 24 hr 05/09/21 05/09/21 05/09/21 18:40 18:40 20:29 WBC 4.4 RBC 3.40 L Hgb 9.7 L Hct 30.5 L MCV 89.7 MCH 28.5 MCHC 31.8 L RDW Std Deviation 49.9 H RDW Coeff of Ortega 15.9 H Plt Count 168 MPV 8.8 Immature Gran % (Auto) 0.900 Neut % (Auto) 68.2 Lymph % (Auto) 20.7 [place] % (Auto) 8.6 Eos % (Auto) 1.4 Baso % (Auto) 0.2 Absolute Neuts (auto) 3.0 Absolute Lymphs (auto) 0.91 Nucleated RBC % 0 Sodium 139 Potassium 4.4 Chloride 109 H Carbon Dioxide 25.0 Anion Gap 5 BUN 17 Creatinine 1.15 Estim Creat Clear Calc 41.41 Est GFR (MDRD) Af Amer 78 Est GFR (MDRD) Non-Af 64 BUN/Creatinine Ratio 14.8 Glucose 65 L Calcium 8.8 Total Bilirubin 0.20 AST 12 L ALT 14 L Alkaline Phosphatase 69 Total Protein 6.4 Albumin 2.8 L Globulin 3.6 Albumin/Globulin Ratio 0.8 L Urine Color Yellow Urine Clarity Cloudy Urine pH 7.0 Ur Specific [place] 1.010 Urine Protein 100 H Urine Glucose (UA) Normal Urine Ketones Negative Urine Occult Blood 250 H Urine Nitrite Positive H Urine Bilirubin Negative Urine Urobilinogen Normal Ur Leukocyte Esterase 500 H Urine RBC 5-10 SEEN Urine WBC 50-100 SEEN Ur Squamous Epith Cells 0-5 SEEN Urine Bacteria 4+ Urine Mucus RARE Radiography Chest X-Ray - ED: 1 View, Read by ED Physician, Heart, Lungs, Mediastinum, Bony Structures, No Acute Disease and Chronic Changes Diagnostic Testing: Clinical Impression(s) from Imaging Studies Chest X-Ray 05/09/21 18:55 IMPRESSION: Nonacute portable x-ray examination of the chest. Electronically Signed: Reed Bunn MD ([place]) at 19:15 EST , Service support , Portable chest x-ray 1 view interpreted by myself the radiologist shows no acute abnormality. He does have a right-sided MediPort. No infiltrate. 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, Anemia of chronic disease Prescriptions: No Action metformin 850 mg tablet 850 mg PO BIDCM RF: 0 amlodipine 5 mg tablet 5 mg PO DAILY RF: 0 glimepiride 4 mg tablet 4 mg PO BID RF: 0 gabapentin 300 mg capsule 300 mg PO QHS RF: 0 Ensure Enlive 0.08 gram-1.5 kcal/mL Liquid 120 ml PO 4X/DAY Qty: 120 RF: 0 nitrofurantoin monohyd/m-cryst [Macrobid] 100 mg capsule 100 mg PO Q12H 7 Days Qty: 14 RF: 0 diphenoxylate-atropine 2.5-0.025 mg tablet 1 tab PO Q6H PRN (Reason: Diarrhea) RF: 0 metoprolol tartrate 25 mg tablet 12.5 mg PO BID RF: 0 aspirin 81 mg tablet 81 mg PO.IVFORM DAILY RF: 0 vancomycin 125 mg capsule 125 mg PO BID RF: 0 Primary Care Provider: Caron Galeano Referrals: Kiet Thornton MD [STAFF PHYSICIAN] - As soon as possible Caron Galeano MD [Primary Care Provider] - As Needed Activity Restrictions/Additional Instructions: Plenty of fluids and rest. Follow-up with your oncologist Dr. Thornton as soon as possible Return if feeling worse. Disposition Disposition: Home, Self Care
--- NOTE | 2021-05-09 18:55 | RAD_ITS ---
STUDY: X-RAY CHEST REASON FOR EXAM: Male, 85 years old. weakness TECHNIQUE: AP COMPARISON: None. FINDINGS: Right chest port. The lungs are clear and expanded. There is no demonstrated pleural abnormality. Normal size heart. Normal mediastinum and melisa. Normal visualized pulmonary arteries. There is atherosclerotic calcification of the aortic arch with tortuosity. Normal visualized thoracic spine. Normal visualized ribs, clavicles, and shoulders. There is no demonstrated abnormality of the visualized soft tissue structures of the upper abdomen. RAD/Chest 1 View (Portable) IMPRESSION: Nonacute portable x-ray examination of the chest. Electronically Signed: Reed Bunn MD ([place]) at 19:15 EST , Service support ,
[2021-05-09 18:58] LABS: Absolute Lymphocyte Count 0.91 X10^3/uL (0.83-4.51); Basophil# 0.01 X10^3/uL; Basophil% 0.2 % (0-1); Eosinophil# 0.06 X10^3/uL; Eosinophils% 1.4 % (0-5); Hematocrit 30.5 % (40-54); Hemoglobin 9.7 g/dL (13.0-16.5); Lymphocyte # 0.91 X10^3/ul (0.83-4.51); Lymphocyte % 20.7 % (19-41); Mean Corp Hgb Conc 31.8 g/dL (32-36); Mean Corpuscular Hgb 28.5 pg (27.0-32.0); Mean Corpuscular Volume 89.7 fL (80-94); Mean Platelet Vol. 8.8 fl (6.2-12.0); Monocyte# 0.38 X10^3/uL; Monocyte% 8.6 % (0-10); NRBC Flagged by Analyzer 0 % (0-5); Neutrophil % 68.2 % (47-70); Platelet Count 168 K/mm3 (150-450); RBC Distribution Width CV 15.9 % (11.6-14.6); RBC Distribution Width SD 49.9 fl (35.1-43.9); White Blood Count 4.4 K/mm3 (4.4-11.0)
[2021-05-09] MEDS: 0.9% Normal Saline 1,000 ML 1000 ML IV (19:00)
[2021-05-09 19:10] LABS: ALB/GLOB Ratio 0.8 RATIO (0.9-2.4); AST(SGOT) 12 U/L (15-37); Alanine Aminotransfer ALT/SGPT 14 U/L (16-61); Albumin, Serum 2.8 g/dL (3.2-5.0); Alkaline Phosphatase 69 U/L (45-117); Anion Gap 5 (5-15); BUN 17 mg/dL (7-18); BUN/Creat Ratio 14.8 RATIO (10-20); Calcium,Total 8.8 mg/dL (8.5-10.1); Chloride 109 mmol/L (98-107); Creatinine, Serum 1.15 mg/dL (0.70-1.30); EST Glomerular Filtration Rate 64 mL/min (>60); Est Glom Filt Rate - Afr Amer 78 mL/min (>60); Estimated Creatinine Clearance 41.41 ml/min; Globulin 3.6 g/dL (2.2-4.2); Glucose 65 mg/dL (74-106); Potassium 4.4 mmol/L (3.5-5.1); Protein, Total 6.4 g/dL (6.4-8.2); Sodium Level 139 mmol/L (136-145)
[2021-05-09 20:36] LABS: Color, Urine Yellow (Yellow); Glucose, Dipstick Normal (Normal); Ketone-Dipstick Negative (Negative); Leukocyte Esterase-Dipstick 500 /ul (Negative); Nitrite-Dipstick Positive (Negative); Occult Blood-Urine 250 /ul (Negative); Protein-Dipstick 100 mg/dl (Negative); Urine Bilirubin Dipstick Negative (Negative); Urine Clarity Cloudy (Clear); Urine Urobilinogen Normal (Normal)
[2021-05-09 20:42] VITALS: BP 123/79; PULSE 76; RESP 15; O2SAT 98
[2021-05-09 20:54] LABS: White Blood Cells 50-100 SEEN /hpf (0-5)
[2021-05-09 20:55] LABS: Bacteria 4+ /hpf (None Seen); Mucous, Urine RARE /hpf (<or=2+); Red Blood Cells-Urine 5-10 SEEN /hpf (0-5); Squamous Epithelial Cells - UA 0-5 SEEN /hpf (0-5)
[2021-05-09] MEDS: Ciprofloxacin 500 MG Tablet PO (21:38)
[2021-05-09 21:48] VITALS: BP 121/75; PULSE 71; RESP 16; O2SAT 99
== END 2021-05-09 21:49 | disposition home or self-care (01) ==
PROVIDERS: Emergency Provider Emergency Medicine; PCP Internal Medicine
DX: R62.7 Adult failure to thrive (principal); R53.1 Weakness; C18.9 Malignant neoplasm of colon, unspecified; C79.51 Secondary malignant neoplasm of bone; D63.8 Anemia in other chronic diseases classified elsewhere; F17.210 Nicotine dependence, cigarettes, uncomplicated; F12.10 Cannabis abuse, uncomplicated; I10 Essential (primary) hypertension; G89.3 Neoplasm related pain (acute) (chronic); E11.9 Type 2 diabetes mellitus without complications; Z79.82 Long term (current) use of aspirin; Z79.84 Long term (current) use of oral hypoglycemic drugs; Z79.899 Other long term (current) drug therapy; Z87.442 Personal history of urinary calculi
CPT/HCPCS: 36591; 71045; 80053; 81001; 85025; 87077; 87086; 87088; 87186; 96360; 96361; 99285; J7030; A4216

== ENCOUNTER 2021-06-04 17:24 | Observation (INO) | payer MEDICARE, MEDICAID, SELFPAY ==
[2021-06-04 17:25] VITALS: BP 117/74; PULSE 103; RESP 18; TEMP 36.2; O2SAT 100; BMI 21.4
[2021-06-04 19:27] LABS: Absolute Lymphocyte Count 0.96 X10^3/uL (0.83-4.51); Absolute Neutrophil Count 2.1 X10^3/uL (2.0-7.7); Basophil# 0.01 X10^3/uL; Basophil% 0.3 % (0-1); Eosinophil# 0.09 X10^3/uL; Eosinophils% 2.7 % (0-5); Hematocrit 31.6 % (40-54); Hemoglobin 9.7 g/dL (13.0-16.5); Lymphocyte # 0.96 X10^3/ul (0.83-4.51); Lymphocyte % 28.9 % (19-41); Mean Corp Hgb Conc 30.7 g/dL (32-36); Mean Corpuscular Hgb 26.8 pg (27.0-32.0); Mean Corpuscular Volume 87.3 fL (80-94); Mean Platelet Vol. 9.4 fl (6.2-12.0); Monocyte# 0.18 X10^3/uL; Monocyte% 5.4 % (0-10); NRBC Flagged by Analyzer 0 % (0-5); Neutrophil # 2.07 X10^3/uL (2.7-7.7); Neutrophil % 62.4 % (47-70); Platelet Count 325 K/mm3 (150-450); RBC Distribution Width CV 16.7 % (11.6-14.6); RBC Distribution Width SD 52.2 fl (35.1-43.9); Red Blood Count 3.62 M/mm3 (4.6-6.2); White Blood Count 3.3 K/mm3 (4.4-11.0)
[2021-06-04 19:46] LABS: Anion Gap 7 (5-15); BUN 29 mg/dL (7-18); BUN/Creat Ratio 21.6 RATIO (10-20); Calcium,Total 9.9 mg/dL (8.5-10.1); Chloride 104 mmol/L (98-107); Creatinine, Serum 1.34 mg/dL (0.70-1.30); EST Glomerular Filtration Rate 54 mL/min (>60); Est Glom Filt Rate - Afr Amer 65 mL/min (>60); Glucose 174 mg/dL (74-106); Potassium 4.5 mmol/L (3.5-5.1); Sodium Level 142 mmol/L (136-145)
--- NOTE | 2021-06-04 20:51 | EKG12_ITS ---
Test Reason : NAUSEA N V Blood Pressure : / mmHG Vent. Rate : 103 BPM Atrial Rate : 103 BPM P-R Int : 120 ms QRS Dur : 106 ms QT Int : 358 ms P-R-T Axes : 017 036 -15 degrees QTc Int : 468 ms Sinus tachycardia Low voltage QRS Nonspecific ST and T wave abnormality Abnormal ECG Confirmed by CHERIE FERNANDEZ, KAREN ([id number]), publications editor SKYE FORD ([id number]) on 06/05/2021 11:41:41 AM Referred By: JOSÉ MIGUEL Confirmed By:KAREN CRESPO MD
[2021-06-04 20:52] VITALS: BP 128/82; PULSE 104; PULSE 105; RESP 18; TEMP 36.7; O2SAT 97; O2SAT 98
--- NOTE | 2021-06-04 20:57 | EDS_ITS ---
HPI History of Present Illness Chief Complaint: Nausea/Vomiting Informant: patient Onset/Context/Timing Onset: Yesterday Current Severity: Moderate Maximum Severity: Moderate Narrative Narrative: Patient presents secondary to diffuse abdominal pain along with nausea and vomiting that started yesterday. Patient is undergoing chemotherapy for colon cancer and his last treatment was 1 week ago. He denies fever or chills. Last bowel movement was yesterday morning. PFSH PFSH Medical History Colon cancer Diabetes High cholesterol Hypertension Kidney stones Smoker Home Medications amlodipine 5 mg PO DAILY 02/13/21 [History Last Taken 02/13/21] gabapentin 300 mg PO QHS 02/13/21 [History Last Taken 02/12/21] glimepiride 4 mg PO BID 02/13/21 [History Last Taken 02/13/21] metformin 850 mg PO BIDCM 02/13/21 [History Last Taken 02/13/21] food supplemt, lactose-reduced [Ensure Enlive] 120 ml PO 4X/DAY #120 ea 02/17/21 [Rx Last Taken Unknown] nitrofurantoin monohyd/m-cryst [Macrobid] 100 mg PO Q12H 7 Days #14 cap 02/23/21 [Rx Last Taken Unknown] aspirin 81 mg PO.IVFORM DAILY 05/09/21 [History Last Taken Unknown] ciprofloxacin HCl [Cipro] 500 mg PO BID 10 Days #20 tab 05/09/21 [Rx Last Taken Unknown] diphenoxylate-atropine 1 tab PO Q6H PRN 05/09/21 [History Last Taken Unknown] metoprolol tartrate 12.5 mg PO BID 05/09/21 [History Last Taken Unknown] vancomycin 125 mg PO BID 05/09/21 [History Last Taken Unknown] Allergy/AdvReac Type Severity Reaction Status Date / Time No Known Allergies Allergy Verified 02/23/21 12:28 Family History Father , Denies any known history of HTN, CAD or DM2 No problems noted. Mother , Denies any known history of HTN, CAD or DM2 No problems noted. Surgical History H/O transurethral resection of prostate History of colon surgery Social History household members: children housing: house Smoking Status: Current every day smoker tobacco type: cigarettes Tobacco: How many years used: 60 alcohol intake: former substance use type: marijuana additional social history: Patient endorses using edible marijuana gummies for his cancer related pain. ROS ROS ED Constitutional Constitutional ED: Denies chills or fever(s) Eyes Eyes: Denies change in vision ENT ENT ED: Denies sore throat Cardiovascular Cardiovascular: Denies chest pain Respiratory/Chest Respiratory/Chest: Denies cough or dyspnea Gastrointestinal Gastrointestinal: Reports abdominal pain, nausea and vomiting; Denies diarrhea Genitourinary Genitourinary ED: Denies dysuria Musculoskeletal Musculoskeletal: Denies back pain Integumentary Denies rash Neurologic Neurologic: Reports weakness; Denies headache(s) Allergic/Immunologic Allergic/Immunologic ED: Denies urticaria EXAM Physical Exam Const Vital Signs: 06/04/21 17:25 06/04/21 20:52 Temperature 97.1 F L 98.1 F Temperature Source Temporal Oral Pulse Rate 103 H 105 H Respiratory Rate 18 18 Blood Pressure 117/74 128/82 H Blood Pressure Mean 88 97 Pulse Ox 100 97 Oxygen Delivery Method Room Air Room Air Positive well nourished and well developed General Appearance ED: well developed Eyes PERRL and EOMs intact bilaterally Neck supple Lymph Lymphatic: other Chest Wall inspection of chest normal and palpation of chest normal Resp normal respiratory effort and clear to auscultation bilaterally Cardio regular rhythm Rate: tachycardic GI GI Narrative: Mild diffuse tenderness. No guarding or rebound Inspection: abdominal distention Auscultation: hypoactive bowel sounds Extremity normal to inspection Neuro oriented x3 Sensorium / Orientation: alert Psych mental status grossly normal Skin no rashes or lesions noted MDM MDM MDM Narrative Medical decision making narrative: Small dose of fentanyl was ordered along with Zofran to control nausea and pain. Lab work, urinalysis, CT abdomen pelvis obtained. Lab Data Labs: Laboratory Results - last 24 hr 06/04/21 06/04/21 06/04/21 18:50 18:50 22:15 WBC 3.3 L RBC 3.62 L Hgb 9.7 L Hct 31.6 L MCV 87.3 MCH 26.8 L MCHC 30.7 L RDW Std Deviation 52.2 H RDW Coeff of Ortega 16.7 H Plt Count 325 MPV 9.4 Immature Gran % (Auto) 0.300 Neut % (Auto) 62.4 Lymph % (Auto) 28.9 [place] % (Auto) 5.4 Eos % (Auto) 2.7 Baso % (Auto) 0.3 Absolute Neuts (auto) 2.1 Absolute Lymphs (auto) 0.96 Nucleated RBC % 0 PT 13.4 INR 1.1 APTT 32.9 Sodium 142 Potassium 4.5 Chloride 104 Carbon Dioxide 31.0 Anion Gap 7 BUN 29 H Creatinine 1.34 H Estim Creat Clear Calc 35.80 Est GFR (MDRD) Af Amer 65 Est GFR (MDRD) Non-Af 54 L BUN/Creatinine Ratio 21.6 H Glucose 174 H Calcium 9.9 Total Bilirubin Direct Bilirubin AST ALT Alkaline Phosphatase Total Protein Albumin Globulin 06/04/21 22:15 WBC RBC Hgb Hct MCV MCH MCHC RDW Std Deviation RDW Coeff of Ortega Plt Count MPV Immature Gran % (Auto) Neut % (Auto) Lymph % (Auto) [place] % (Auto) Eos % (Auto) Baso % (Auto) Absolute Neuts (auto) Absolute Lymphs (auto) Nucleated RBC % PT INR APTT Sodium Potassium Chloride Carbon Dioxide Anion Gap BUN Creatinine Estim Creat Clear Calc Est GFR (MDRD) Af Amer Est GFR (MDRD) Non-Af BUN/Creatinine Ratio Glucose Calcium Total Bilirubin 0.40 Direct Bilirubin 0.14 AST 10 L ALT 15 L Alkaline Phosphatase 75 Total Protein 6.6 Albumin 2.6 L Globulin 4.0 Radiography Diagnostic Testing: Clinical Impression(s) from Imaging Studies Abdomen/Pelvis CT 06/04/21 22:06 IMPRESSION: 1. Moderate LEFT effusion, basilar atelectasis versus subtle interstitial infiltrate at the LEFT base. 2. Lobulated RIGHT lower lobe nodule/mass measuring 2.1 x 1.7 cm size. Allowing for differences in technique there has been negligible change. 3. Cirrhotic appearance of liver and moderate ascites also noted. 4. Small gallstone noted within the neck of the gallbladder, this appears stable. No ductal dilatation. 5. Stable appearance of LEFT renal cysts including a large low density cyst, and a smaller hyperdense exophytic cyst along the inferior pole. 6. No evidence of obstructive uropathy. 7. No bowel obstruction abscess or free air. Moderate amount retained stool is noted. 8. Diverticulosis without diverticulitis. 9. Hiatal hernia versus circumferential thickening of the distal thoracic esophagus. Distal esophageal infiltrating process is not excluded. In the absence of a previous historic/remote imaging, consider upper GI for evaluation versus direct visualization 10. Appendix is not visualized and may be surgically absent. 11. Small pericardial effusion noted. 12. RIGHT adrenal nodule measuring approximately 2.4 x 1.7 cm in size. Electronically Signed: Paulino Puckett MD at 23:00 EST Tel , Service support , EKG Initial EKG: Attestation: I personally reviewed and interpreted this EKG as follows: Interpretation: Sinus Tachycardia (Sinus tach at 103 with no acute is chemia. QTc 468.) Treatment and Re-Evaluation Comments:: On repeat evaluation patient resting comfortably. He continues to have nausea with dry heaves. Second dose of medications have been ordered. Lab work is largely unremarkable. White count is low at 3.3. CT scan shows chronic changes with no significant change from prior. At this time patient has not yet able to tolerate p.o. I will speak with hospitalist regarding observation. Discharge Plan Triage Chief Complaint: Nausea/Vomiting ED Provider: Alanna Mcgovern Dx/Rx/DC Orders Clinical Impression: Vomiting Prescriptions: No Action metformin 850 mg tablet 850 mg PO BIDCM RF: 0 amlodipine 5 mg tablet 5 mg PO DAILY RF: 0 glimepiride 4 mg tablet 4 mg PO BID RF: 0 gabapentin 300 mg capsule 300 mg PO QHS RF: 0 Ensure Enlive 0.08 gram-1.5 kcal/mL Liquid 120 ml PO 4X/DAY Qty: 120 RF: 0 nitrofurantoin monohyd/m-cryst [Macrobid] 100 mg capsule 100 mg PO Q12H 7 Days Qty: 14 RF: 0 diphenoxylate-atropine 2.5-0.025 mg tablet 1 tab PO Q6H PRN (Reason: Diarrhea) RF: 0 metoprolol tartrate 25 mg tablet 12.5 mg PO BID RF: 0 aspirin 81 mg tablet 81 mg PO.IVFORM DAILY RF: 0 vancomycin 125 mg capsule 125 mg PO BID RF: 0 ciprofloxacin HCl [Cipro] 500 mg tablet 500 mg PO BID 10 Days Qty: 20 RF: 0 Primary Care Provider: Caron Galeano Referrals: Caron Galeano MD [Primary Care Provider] - Disposition Disposition: Acute Care Hospital [facility]
[2021-06-04 21:00] VITALS: RESP 18
[2021-06-04] MEDS: Ondansetron 4 MG/2 ML Vial IV (21:06)
[2021-06-04] MEDS: fentaNYL 100 MCG/2 ML Ampul 12.5 MCG IV (21:06)
[2021-06-04] MEDS: 0.9% Normal Saline 1,000 ML 150 ML IV (21:15)
[2021-06-04 22:00] VITALS: BP 137/81; PULSE 104; RESP 18; O2SAT 98
--- NOTE | 2021-06-04 22:06 | CT_ITS ---
INDICATION: abd pain, vomiting EXAMINATION: CT ABDOMEN AND PELVIS WITHOUT CONTRAST - CT Abdomen And Pelvis W/O Contrast Injection TECHNIQUE: Helically acquired images were obtained of the abdomen and pelvis without oral or IV contrast. A radiation dose optimization technique was used for this scan. IV Contrast dosage and agent: None. Oral contrast: None. Radiation Dose (provided by facility) CTDIvol (6.23 ) mGy, DLP ( 339.53) mGy-cm COMPARISON: 02/13/2021 FINDINGS: LOWER CHEST: 1. There is a small moderate LEFT pleural effusion. There is mild diffuse interstitial infiltrate at the LEFT posterior cardiophrenic sulcus at the level of the effusion. 2. There is a mildly lobulated RIGHT lower lobe mass measuring 2.1 x 1.7 cm in size. 3. Cardiac contour is unchanged, coronary vascular calcifications present. There is pericardial thickening versus small pericardial effusion. LIVER: Liver is small and lobulated contour, multiple granulomatous calcifications are present throughout the liver. Contour is consistent with cirrhosis. There is moderate ascites. GALLBLADDER AND BILIARY TREE: Gallbladder is intact, partially contracted, there appears to be a radiodense calcification in the gallbladder neck. No pa ductal dilatation. PANCREAS: No focal cystic or solid mass. SPLEEN: Normal size without focal cystic or solid mass. ADRENAL GLANDS: RIGHT adrenal gland is poorly visualized however appears to contain a low-density nodule estimated approximately 2.4 x 1.7 cm in size. LEFT adrenal gland appears normal. KIDNEYS AND URETERS: Kidneys are unchanged in configuration, there is a large LEFT renal cyst measuring 9.7 x 9.4 cm cyst in size. No calcifications or evidence of obstructive uropathy. There is a small hyperdense cyst along the inferior contour of the LEFT kidney, measuring approximately 1.3 x 1.0 cm in size with negligible change. No hydronephrosis. PERITONEUM: Moderate ascites noted. No free air evident. No abscess collection. BOWEL: 1. Stomach has normal configuration. There is a small hiatal hernia versus circumferential thickening of the distal thoracic esophagus. 2. Large and small bowel segments have normal configuration, diffuse diverticulosis is noted. No evidence diverticulitis. 3. The appendix is not adequately visualized. There appear to be anastomotic sutures in the region of the RIGHT hemicolon. LYMPH NODES: No distinct adenopathy noted however coarsely calcified structure within the root of mesentery (series 2: Image 92) may represent a group of calcified lymph nodes. VESSELS: Diffuse aortic calcifications and mild fusiform dilatation with maximal axial dimension of 3.8 x 3.4 cm in size. Findings are stable. URINARY BLADDER: Unremarkable. REPRODUCTIVE ORGANS: Marked prostatic hypertrophy with maximal axial dimension of 5.6 x 5.0 cm in size ABDOMINAL WALL: Postoperative changes of prior bilateral inguinal hernia repair. No recurrent or residual hernia noted. BONES: Stable appearance, no acute bony changes noted. CT/Abdomen/Pelvis without Cont IMPRESSION: 1. Moderate LEFT effusion, basilar atelectasis versus subtle interstitial infiltrate at the LEFT base. 2. Lobulated RIGHT lower lobe nodule/mass measuring 2.1 x 1.7 cm size. Allowing for differences in technique there has been negligible change. 3. Cirrhotic appearance of liver and moderate ascites also noted. 4. Small gallstone noted within the neck of the gallbladder, this appears stable. No ductal dilatation. 5. Stable appearance of LEFT renal cysts including a large low density cyst, and a smaller hyperdense exophytic cyst along the inferior pole. 6. No evidence of obstructive uropathy. 7. No bowel obstruction abscess or free air. Moderate amount retained stool is noted. 8. Diverticulosis without diverticulitis. 9. Hiatal hernia versus circumferential thickening of the distal thoracic esophagus. Distal esophageal infiltrating process is not excluded. In the absence of a previous historic/remote imaging, consider upper GI for evaluation versus direct visualization 10. Appendix is not visualized and may be surgically absent. 11. Small pericardial effusion noted. 12. RIGHT adrenal nodule measuring approximately 2.4 x 1.7 cm in size. Electronically Signed: Paulino Puckett MD at 23:00 EST Tel , Service support ,
[2021-06-04 22:32] LABS: International Normalized Ratio 1.1; Prothrombin Time (Protime)PT. 13.4 SECONDS (11.7-14.9)
[2021-06-04 22:33] LABS: Partial Thromboplast Time 32.9 Seconds (24.1-36.2)
[2021-06-04 23:00] VITALS: BP 143/86; PULSE 107; RESP 19; O2SAT 96
[2021-06-04 23:02] LABS: AST(SGOT) 10 U/L (15-37); Alanine Aminotransfer ALT/SGPT 15 U/L (16-61); Albumin, Serum 2.6 g/dL (3.2-5.0); Alkaline Phosphatase 75 U/L (45-117); Bilirubin, Direct 0.14 mg/dL (0.00-0.30); Protein, Total 6.6 g/dL (6.4-8.2)
[2021-06-05] VITALS: BP 118/78; PULSE 96; RESP 19; O2SAT 96
--- NOTE | 2021-06-05 00:54 | HP.PCM.HOS_ITS ---
HPI - General General Date of Admission: 06/05/21 HPI Narrative SARMAD MOY, is a 85 M with a significant history of colon cancer status post colectomy with last chemotherapy a week ago who presents to the emergency department with persistent nausea and vomiting that started 2 days ago. Associated with his symptoms as anorexia. Further he has fatigue and weakness. PFSH Medical History Asthma Cancer Colon cancer Diabetes Diabetes GERD (gastroesophageal reflux disease) High cholesterol Hypertension Kidney stones Smoker Smoker Home Medications amlodipine 5 mg PO DAILY 02/13/21 [History Last Taken 02/13/21] gabapentin 300 mg PO QHS 02/13/21 [History Last Taken 02/12/21] glimepiride 4 mg PO BID 02/13/21 [History Last Taken 02/13/21] metformin 850 mg PO BIDCM 02/13/21 [History Last Taken 02/13/21] food supplemt, lactose-reduced [Ensure Enlive] 120 ml PO 4X/DAY #120 ea 02/17/21 [Rx Last Taken Unknown] nitrofurantoin monohyd/m-cryst [Macrobid] 100 mg PO Q12H 7 Days #14 cap 02/23/21 [Rx Last Taken Unknown] aspirin 81 mg PO/SL DAILY 05/09/21 [History Last Taken Unknown] ciprofloxacin HCl [Cipro] 500 mg PO BID 10 Days #20 tab 05/09/21 [Rx Last Taken Unknown] diphenoxylate-atropine 1 tab PO Q6H PRN 05/09/21 [History Last Taken Unknown] metoprolol tartrate 12.5 mg PO BID 05/09/21 [History Last Taken Unknown] vancomycin 125 mg PO BID 05/09/21 [History Last Taken Unknown] Allergy/AdvReac Type Severity Reaction Status Date / Time No Known Allergies Allergy Verified 02/23/21 12:28 Family History Father , Denies any known history of HTN, CAD or DM2 No problems noted. Mother , Denies any known history of HTN, CAD or DM2 No problems noted. Surgical History H/O transurethral resection of prostate History of colon surgery Social History household members: children housing: house Smoking Status: Current every day smoker tobacco type: cigarettes Tobacco: How many years used: 60 alcohol intake: former substance use type: marijuana additional social history: Patient endorses using edible marijuana gummies for his cancer related pain. ROS ROS Narrative Constitutional: Denies fever, chills, fatigue, anorexia and change in weight Eyes: Denies blurry vision, change in eye color, change in vision, discharge from eye(s), double vision, erythema, eye pain, loss of vision or other HEENT: Denies abnormal hearing, dysphagia, ear pain, epistaxis, headache(s), hearing loss, nasal congestion, nasal discharge, post nasal drip, sinus pressure, sore throat or other Cardiovascular: Denies chest pain or palpitations. Denies dyspnea on exertion, orthopnea and paroxysmal nocturnal dyspnea Respiratory/Chest: Denies cough, excessive phlegm production, shortness of breath with exertion and wheezing Gastrointestinal: Reports abdominal pain, nausea and vomiting. Denies coffee ground emesis, constipation, diarrhea, dyspepsia, hematemesis, hematochezia, loose stools, melena, or other Genitourinary: Denies burning urination, difficulty urinating, dysuria, hematuria, nocturia, urinary frequency, urinary hesitancy, urinary incontinence, urinary urgency or other Musculoskeletal: Denies arthralgias, back pain, joint pain, joint stiffness, joint swelling, myalgias, neck pain or other Neurologic: Denies abnormal gait, abnormal speech, confusion, disequilibrium, dizziness, focal weakness, headache(s), numbness, paresthesias, seizure-like act ivity, seizures, syncope, tingling, tremor(s) or other Psychiatric: Denies anxiety, depression, homicidal ideation, suicidal ideation or other Endocrinology: Denies change in body appearance, cold intolerance, excessive sweating, heat intolerance, polydipsia, polyuria or other Hematologic/Lymphatic: Denies anemia, easy bleeding, easy bruising, lymphadenopathy or other Integumentary: Denies rashes Allergic/Immunologic: Denies rhinitis, hives, eczema, asthma or other Vital Signs Vital Signs Vital Signs: 06/04/21 17:25 06/04/21 20:52 06/04/21 21:00 Temperature 97.1 F L 98.1 F Temperature Source Temporal Oral Pulse Rate 103 H 105 H Respiratory Rate 18 18 18 Blood Pressure 117/74 128/82 H Blood Pressure Mean 88 97 Pulse Ox 100 97 Oxygen Delivery Method Room Air Room Air 06/04/21 22:00 06/04/21 23:00 06/05/21 00:00 Temperature Temperature Source Pulse Rate 104 H 107 H 96 Respiratory Rate 18 19 H 19 H Blood Pressure 137/81 H 143/86 H 118/78 Blood Pressure Mean 99 105 91 Pulse Ox 98 96 96 Oxygen Delivery Method Room Air Room Air Weight Weight: 63.957 kg Body Mass Index (BMI) 21.4 Physical Exam Narrative Physical exam: General: Well-nourished, well-developed. Head: Normocephalic, atraumatic, no tenderness Eyes: PERRLA, EOMI ENT, no trauma, moist mucous membranes, no rhinorrhea Neck: Nontender, full range of motion, no spinal tenderness, deformities, step- off CVS: Regular rate and rhythm. S1-S2 present. No murmur, gallop or rub. Respiratory : clear to auscultation bilaterally, chest wall nontender, no wheezing Abdomen: Soft, nontender, nondistended, normal bowel sounds, no masses : Deferred Back: Nontender, no CVA tenderness, no midline spinal tenderness, deformities, step-offs Extremities: Nontender full range of motion, no trauma Skin: Normal color, no trauma, abrasions Neuro: Alert, oriented, cranial nerves II through XII grossly intact. Psychiatry: Normal mood. Normal affect. Not depressed. Not anxious. Results Lab / Micro Data Result Diagrams: 06/05/21 06:00 06/05/21 06:00 Labs: Laboratory Results - last 24 hr 06/04/21 18:50: WBC 3.3 L, RBC 3.62 L, Hgb 9.7 L, Hct 31.6 L, MCV 87.3, MCH 26.8 L, MCHC 30.7 L, RDW Std Deviation 52.2 H, RDW Coeff of Ortega 16.7 H, Plt Count 325, MPV 9.4, Immature Gran % (Auto) 0.300, Neut % (Auto) 62.4, Lymph % (Auto) 28.9, [place] % (Auto) 5.4, Eos % (Auto) 2.7, Baso % (Auto) 0.3, Absolute Neuts (a uto) 2.1, Absolute Lymphs (auto) 0.96, Nucleated RBC % 0 06/04/21 18:50: Sodium 142, Potassium 4.5, Chloride 104, Carbon Dioxide 31.0, Anion Gap 7, BUN 29 H, Creatinine 1.34 H, Estim Creat Clear Calc 35.80, Est GFR (MDRD) Af Amer 65, Est GFR (MDRD) Non-Af 54 L, BUN/Creatinine Ratio 21.6 H, Glucose 174 H, Calcium 9.9 06/04/21 22:15: PT 13.4, INR 1.1, APTT 32.9 06/04/21 22:15: Total Bilirubin 0.40, Direct Bilirubin 0.14, AST 10 L, ALT 15 L, Alkaline Phosphatase 75, Total Protein 6.6, Albumin 2.6 L, Globulin 4.0 Micro: Microbiology 06/04/21 21:25 Nasal Secretion SARS-CoV-2 Antigen (Rapid) - Final Radiology Impression Abdomen/Pelvis CT 06/04/21 22:06 IMPRESSION: 1. Moderate LEFT effusion, basilar atelectasis versus subtle interstitial infiltrate at the LEFT base. 2. Lobulated RIGHT lower lobe nodule/mass measuring 2.1 x 1.7 cm size. Allowing for differences in technique there has been negligible change. 3. Cirrhotic appearance of liver and moderate ascites also noted. 4. Small gallstone noted within the neck of the gallbladder, this appears stable. No ductal dilatation. 5. Stable appearance of LEFT renal cysts including a large low density cyst, and a smaller hyperdense exophytic cyst along the inferior pole. 6. No evidence of obstructive uropathy. 7. No bowel obstruction abscess or free air. Moderate amount retained stool is noted. 8. Diverticulosis without diverticulitis. 9. Hiatal hernia versus circumferential thickening of the distal thoracic esophagus. Distal esophageal infiltrating process is not excluded. In the absence of a previous historic/remote imaging, consider upper GI for evaluation versus direct visualization 10. Appendix is not visualized and may be surgically absent. 11. Small pericardial effusion noted. 12. RIGHT adrenal nodule measuring approximately 2.4 x 1.7 cm in size. Electronically Signed: Paulino Puckett MD at 23:00 EST Tel , Service support , Assessment & Plan Assessment/Plan (1) Intractable nausea and vomiting: PLAN: Intractable nausea and vomiting supportive treatment with IV fluids CT abdomen pelvis did not show acute pathology. Zofran and morphine ordered. Gentle IV hydration. N.p.o. Observe at the hospital. Pancytopenia Review of labs showed white count of 2.8 and hemoglobin of 8.7. Likely second to chemotherapy. Trend CBC. DVT prophylaxis: SCD ordered. Charges/Coding Visit Charges OBSV E&M: 68662 Initial observation care L2
[2021-06-05] MEDS: fentaNYL 100 MCG/2 ML Ampul 25 MCG IV (01:03)
[2021-06-05] MEDS: Ondansetron 4 MG/2 ML Vial IV (01:03)
[2021-06-05 01:38] VITALS: BP 129/78; PULSE 105; RESP 21; TEMP 36.6; O2SAT 96
[2021-06-05 01:58] VITALS: BMI 20.2
--- NOTE | 2021-06-05 02:27 | PCS.PANDOC ---
PANDEMIC DOCUMENTATION INITIATED: Date: 02/09/2021 Time: 190
[2021-06-05] MEDS: 0.9% Normal Saline 1,000 ML 75 ML IV (02:32)
[2021-06-05 03:00] VITALS: BP 123/80; PULSE 104; RESP 18; TEMP 37.6; O2SAT 99
[2021-06-05 06:21] LABS: Absolute Lymphocyte Count 1.06 X10^3/uL (0.83-4.51); Absolute Neutrophil Count 1.4 X10^3/uL (2.0-7.7); Basophil# 0.01 X10^3/uL; Basophil% 0.4 % (0-1); Eosinophil# 0.04 X10^3/uL; Eosinophils% 1.4 % (0-5); Hematocrit 27.9 % (40-54); Hemoglobin 8.7 g/dL (13.0-16.5); Lymphocyte # 1.06 X10^3/ul (0.83-4.51); Mean Corp Hgb Conc 31.2 g/dL (32-36); Mean Corpuscular Hgb 27.4 pg (27.0-32.0); Mean Platelet Vol. 9.1 fl (6.2-12.0); Monocyte# 0.24 X10^3/uL; Monocyte% 8.6 % (0-10); NRBC Flagged by Analyzer 0 % (0-5); Neutrophil # 1.43 X10^3/uL (2.7-7.7); Neutrophil % 51.2 % (47-70); POSITIVE MORPHOLOGY YES; Platelet Count 267 K/mm3 (150-450); RBC Distribution Width SD 54.3 fl (35.1-43.9); Red Blood Count 3.17 M/mm3 (4.6-6.2); White Blood Count 2.8 K/mm3 (4.4-11.0)
[2021-06-05 06:31] LABS: Differential Indicated SCAN CRITERIA MET
[2021-06-05 06:55] LABS: Anion Gap 7 (5-15); BUN 30 mg/dL (7-18); BUN/Creat Ratio 22.1 RATIO (10-20); Calcium,Total 8.9 mg/dL (8.5-10.1); Chloride 106 mmol/L (98-107); Creatinine, Serum 1.36 mg/dL (0.70-1.30); EST Glomerular Filtration Rate 53 mL/min (>60); Est Glom Filt Rate - Afr Amer 64 mL/min (>60); Estimated Creatinine Clearance 33.47 ml/min; Glucose 141 mg/dL (74-106); Potassium 4.5 mmol/L (3.5-5.1); Sodium Level 142 mmol/L (136-145)
[2021-06-05 09:00] VITALS: BP 96/60; PULSE 92; RESP 18; TEMP 36.4; O2SAT 97
[2021-06-05] MEDS: Ensure Clear 120 ML Liquid PO ×2 (10:46→14:40)
[2021-06-05] MEDS: Enoxaparin 40 MG/0.4 ML Syringe SC (10:47)
--- NOTE | 2021-06-05 11:23 | CASEMGMT ---
Per therapy, no recommendations for pt at discharge. This RN CM to room and pt states no concerns with going home at discharge. SStaten RN CM
[2021-06-05 12:28] LABS: Bacteria 0 SEEN /hpf (None Seen); Mucous, Urine 0 SEEN /hpf (<or=2+); Red Blood Cells-Urine 0 SEEN /hpf (0-5)
[2021-06-05 12:30] LABS: Color, Urine Yellow (Yellow); Glucose, Dipstick Normal (Normal); Ketone-Dipstick 5 mg/dl (Negative); Leukocyte Esterase-Dipstick 25 /ul (Negative); Nitrite-Dipstick Negative (Negative); Occult Blood-Urine Negative /ul (Negative); Protein-Dipstick 30 mg/dl (Negative); Urine Bilirubin Dipstick Negative (Negative); Urine Clarity Clear (Clear); Urine Urobilinogen Normal (Normal)
[2021-06-05 12:36] LABS: Squamous Epithelial Cells - UA 0-5 SEEN /hpf (0-5); White Blood Cells 0-5 SEEN /hpf (0-5)
--- NOTE | 2021-06-05 12:49 | PCM.HOSP.N ---
Hospitalist Note Mr. Bunch is an 85-year-old male who has metastatic colon cancer and been undergoing chemotherapy for approximately 5 years who presented to the emergency department at [facility] early this morning 06/05/2021 with intractable nausea and vomiting as well as diffuse abdominal pain. On admission the patient reported that it started the day prior to admission. He had been unable to intake much p.o. He admitted to passing flatus but his last bowel movement was the morning prior to admission. A CT scan was performed in the emergency department and showed chronic changes with no acute abnormality. Unfortunately, in the emergency department we were unable to get his nausea vomiting under control and he required admission to the hospital. He was started on IV fluids and antiemetics. In the emergency department he received a 40 mg IV bolus of Protonix and Protonix 40 mg daily was continued on the floor IV push given his nausea vomiting. Later in the morning he was having improved nausea and abdominal pain and was asking for something to eat. We started a clear liquid diet this morning and if he does well with this we can progress his diet slowly. If able to tolerate p.o. possible discharge home on 06/06/2021.
[2021-06-05 14:41] VITALS: BP 93/53; PULSE 81; RESP 18; TEMP 37.1; O2SAT 92
[2021-06-05 20:40] VITALS: BP 104/64; PULSE 87; RESP 16; TEMP 36.7; O2SAT 95
[2021-06-06] MEDS: 0.9% Normal Saline 1,000 ML 75 ML IV (00:03)
[2021-06-06 03:00] VITALS: BP 95/48; PULSE 91; RESP 16; TEMP 36.8; O2SAT 95
[2021-06-06 07:49] LABS: Absolute Lymphocyte Count 1.29 X10^3/uL (0.83-4.51); Absolute Neutrophil Count 1.5 X10^3/uL (2.0-7.7); Basophil# 0.01 X10^3/uL; Basophil% 0.3 % (0-1); Eosinophil# 0.18 X10^3/uL; Eosinophils% 5.6 % (0-5); Hematocrit 23.9 % (40-54); Hemoglobin 7.5 g/dL (13.0-16.5); Lymphocyte # 1.29 X10^3/ul (0.83-4.51); Lymphocyte % 40.2 % (19-41); Mean Corp Hgb Conc 31.4 g/dL (32-36); Mean Corpuscular Volume 89.2 fL (80-94); Mean Platelet Vol. 9.3 fl (6.2-12.0); Monocyte# 0.24 X10^3/uL; Monocyte% 7.5 % (0-10); NRBC Flagged by Analyzer 0 % (0-5); Neutrophil # 1.48 X10^3/uL (2.7-7.7); Neutrophil % 46.1 % (47-70); POSITIVE MORPHOLOGY YES; Platelet Count 216 K/mm3 (150-450); RBC Distribution Width CV 17.3 % (11.6-14.6); RBC Distribution Width SD 56.5 fl (35.1-43.9); Red Blood Count 2.68 M/mm3 (4.6-6.2); White Blood Count 3.2 K/mm3 (4.4-11.0)
[2021-06-06 08:17] LABS: Differential Indicated SCAN CRITERIA MET
[2021-06-06 08:23] LABS: Anion Gap 6 (5-15); BUN 29 mg/dL (7-18); BUN/Creat Ratio 20.6 RATIO (10-20); Calcium,Total 7.8 mg/dL (8.5-10.1); Chloride 108 mmol/L (98-107); Creatinine, Serum 1.41 mg/dL (0.70-1.30); EST Glomerular Filtration Rate 51 mL/min (>60); Est Glom Filt Rate - Afr Amer 61 mL/min (>60); Estimated Creatinine Clearance 32.29 ml/min; Glucose 141 mg/dL (74-106); Potassium 3.5 mmol/L (3.5-5.1); Sodium Level 142 mmol/L (136-145)
[2021-06-06 08:34] VITALS: BP 103/64; PULSE 88; RESP 12; TEMP 36.8; O2SAT 94
[2021-06-06] MEDS: Ensure Clear 120 ML Liquid PO (09:47)
[2021-06-06] MEDS: Enoxaparin 40 MG/0.4 ML Syringe SC (09:48)
[2021-06-06 09:59] LABS: Differential Comment SCANNED
[2021-06-06 12:03] LABS: Platelet Count 233 K/mm3 (150-450); RET-HE 29.3 pg (30-35); Reticulocyte Count 1.46 % (0.5-1.5)
[2021-06-06 12:05] LABS: Iron 18 ug/dL (65-175); Iron Binding Capacity,Total 169 ug/dL (250-450)
[2021-06-06 12:06] LABS: PERCENT IRON SATURATION 10.7 % (15.0-55.0)
--- NOTE | 2021-06-06 12:54 | PCM.DC ---
Discharge Instructions Diet Discharge Diet: No restrictions Activity Discharge Activity: Return to Normal Activity Weight Bearing Status: Full weight bearing Follow Up Care Test Results: Test results from this visit will be discussed in further detail at your follow-up appointment, if applicable. Discharge Plan Admission Admit Date/Time: 06/05/21 01:02 Primary Reason for Your Visit: nausea/vomiting Attending Provider: Nigel Lai Primary Care Provider: Caron Galeano Discharge Orders/Prescriptions Prescriptions: Continued metformin 850 mg tablet 850 mg PO BIDCM RF: 0 amlodipine 5 mg tablet 5 mg PO DAILY RF: 0 glimepiride 4 mg tablet 4 mg PO BID RF: 0 gabapentin 300 mg capsule 300 mg PO QHS RF: 0 Ensure Enlive 0.08 gram-1.5 kcal/mL Liquid 120 ml PO 4X/DAY Qty: 120 RF: 0 diphenoxylate-atropine 2.5-0.025 mg tablet 1 tab PO Q6H PRN (Reason: Diarrhea) RF: 0 metoprolol tartrate 25 mg tablet 12.5 mg PO BID RF: 0 aspirin 81 mg tablet 81 mg PO/SL DAILY RF: 0 Discontinued nitrofurantoin monohyd/m-cryst [Macrobid] 100 mg capsule 100 mg PO Q12H 7 Days Qty: 14 RF: 0 vancomycin 125 mg capsule 125 mg PO BID RF: 0 ciprofloxacin HCl [Cipro] 500 mg tablet 500 mg PO BID 10 Days Qty: 20 RF: 0 Referrals / Follow Up: Kiet Thornton MD [STAFF PHYSICIAN] - See Referral Note (this week) Caron Galeano MD [Primary Care Provider] - Within 2 Weeks Disposition Disposition (needs filled in before D/C Order can be placed): Home, Self Care
[2021-06-06 13:53] VITALS: BP 115/70; PULSE 95; RESP 12; TEMP 36.6; O2SAT 96
[2021-06-06] MEDS: 0.9% Saline Lock 10 ML Syringe IV (14:05)
--- NOTE | 2021-06-06 18:56 | PCM.DC.SUM ---
Providers Date of Admission: 06/05/21 Date of Discharge: 06/06/21 Primary Care Physician: Dr. Caron Galeano MD Reason For Visit: INTRACTABLE NAUSEA AND VOMITING Diagnosis Discharge Diagnosis (1) Intractable nausea and vomiting: Status: Acute Code(s): R11.2 - Nausea with vomiting, unspecified Plan: 1. Nausea and vomiting-as a result of recent chemotherapy #2 bicytopenia-secondary to chemotherapy for metastatic colon cancer #3 metastatic colon cancer #4 chronic kidney disease stage IIIa #5 iron deficiency anemia Medications at Discharge Home Medications amlodipine 5 mg PO DAILY 02/13/21 gabapentin 300 mg PO QHS 02/13/21 glimepiride 4 mg PO BID 02/13/21 metformin 850 mg PO BIDCM 02/13/21 aspirin 81 mg PO/SL DAILY 05/09/21 diphenoxylate-atropine 1 tab PO Q6H PRN 05/09/21 metoprolol tartrate 12.5 mg PO BID 05/09/21 Ensure Enlive 120 ml PO 4X/DAY 06/06/21 Hospital Course Operations None Procedures None Summary of Care Provided Minutes Spent on Discharge: 30 Hospital Course: This 85-year-old white male presented to the emergency room at [facility] with a chief complaint of nausea and vomiting that was persistent over 24 hours. Patient gets chronic chemotherapy for metastatic colon cancer, his last treatment was a week ago. Labs obtained in the emergency room showed a slightly low white blood cell count at 3.3, hemoglobin was 9.7, platelet count was 325,000. Patient's creatinine was elevated at 1.34, BUN was 29. CT of the abdomen and pelvis showed a right lower lobe lung nodule or mass approximately 2.1 cm in size, the appearance of the liver was noted to be cirrhotic and moderate ascites was noted. Patient was placed in observation status on PCU and given IV fluids, his labs were monitored, it was noted his hemoglobin did drop to 7.5 on 06/06/2021, the patient however was asymptomatic and wished to be discharged home if possible. I talked with Dr. Leyva who was covering for the patient's oncologist (Dr. Thornton) and he recommended obtaining iron studies on the patient and did not feel the patient warranted blood transfusion. Patient will be following up with his oncologist in a few days according to the patient. On 06/06/2021, patient was seen and examined: On examination he appeared older than his stated age. Vital signs as documented. Skin warm and dry and without overt rashes. Neck without JVD, neck was supple, trachea midline, thyroid was normal. Lungs clear bilaterally, normal air movement was noted. Heart exam notable for regular rhythm, normal sounds and absence of murmurs, rubs or gallops. Abdomen unremarkable and without evidence of organomegaly, masses, or abdominal aortic enlargement. Bowel sounds are present, abdomen is not distended. Extremities nonedematous, no cyanosis was noted, no clubbing was noted. Neuro: Cranial nerves II through XII are grossly intact, no focal motor deficits were noted, sensation to light touch and pinprick intact, motor exam 5/5 throughout. Psych: Patient is alert and oriented x3, he does not appear anxious or depressed, he does not appear agitated. Patient was discharged home in stable condition on 06/06/2021. Weight / BMI Weight Weight: 60.7 kg Body Mass Index (BMI) 20.2 ABG / Lab / Microbiology Data Result Diagrams: 06/06/21 07:32 06/06/21 07:32 Laboratory: Laboratory Results - last 24 hr 06/06/21 07:32: WBC 3.2 L, RBC 2.68 L, Hgb 7.5 L, Hct 23.9 L, MCV 89.2, MCH 28.0, MCHC 31.4 L, RDW Std Deviation 56.5 H, RDW Coeff of Ortega 17.3 H, Plt Count 216, MPV 9.3, Immature Gran % (Auto) 0.300, Neut % (Auto) 46.1 L, Lymph % (Auto) 40.2, [place] % (Auto) 7.5, Eos % (Auto) 5.6 H, Baso % (Auto) 0.3, Absolute Neuts (auto) 1.5 L, Absolute Lymphs (auto) 1.29, Nucleated RBC % 0, Differential Comment SCANNED 06/06/21 07:32: Sodium 142, Potassium 3.5, Chloride 108 H, Carbon Dioxide 28.0, Anion Gap 6, BUN 29 H, Creatinine 1.41 H, Estim Creat Clear Calc 32.29, Est GFR (MDRD) Af Amer 61, Est GFR (MDRD) Non-Af 51 L, BUN/Creatinine Ratio 20.6 H, Glucose 141 H, Calcium 7.8 L 06/06/21 07:32: Retic Count 1.46, Immature Retic Fraction 16.30 H, Retic Hgb Equivalent 29.3 L 06/06/21 07:32: Iron 18 L, TIBC 169 L, Iron Saturation 10.7 L Microbiology: Microbiology 06/04/21 21:25 Nasal Secretion SARS-CoV-2 Antigen (Rapid) - Final D/C Instructions Discharge Diet: No restrictions Weight Bearing Status: Full weight bearing Meaningful Use Info Meaningful Use Diagnoses (Choose all that apply): None applicable Discharge Plan Admission Admit Date/Time: 06/05/21 01:02 Primary Reason for Your Visit: nausea/vomiting Attending Provider: Nigel Lai Primary Care Provider: Caron Galeano Discharge Orders/Prescriptions Prescriptions: Continued metformin 850 mg tablet 850 mg PO BIDCM RF: 0 amlodipine 5 mg tablet 5 mg PO DAILY RF: 0 glimepiride 4 mg tablet 4 mg PO BID RF: 0 gabapentin 300 mg capsule 300 mg PO QHS RF: 0 diphenoxylate-atropine 2.5-0.025 mg tablet 1 tab PO Q6H PRN (Reason: Diarrhea) RF: 0 metoprolol tartrate 25 mg tablet 12.5 mg PO BID RF: 0 aspirin 81 mg tablet 81 mg PO/SL DAILY RF: 0 Discontinued nitrofurantoin monohyd/m-cryst [Macrobid] 100 mg capsule 100 mg PO Q12H 7 Days Qty: 14 RF: 0 vancomycin 125 mg capsule 125 mg PO BID RF: 0 ciprofloxacin HCl [Cipro] 500 mg tablet 500 mg PO BID 10 Days Qty: 20 RF: 0 No Action Ensure Enlive 0.08 gram-1.5 kcal/mL liquid 120 ml PO 4X/DAY RF: 0 Referrals / Follow Up: Kiet Thornton MD [STAFF PHYSICIAN] - See Referral Note (this week) Caron Galeano MD [Primary Care Provider] - Within 2 Weeks Disposition Disposition (needs filled in before D/C Order can be placed): Home, Self Care Charges/Coding Visit Charges OBSV E&M: 73045 Observation care discharge
== END 2021-06-06 14:18 | disposition home or self-care (01) ==
LOC: ED 23:58 → PCU 06-05 02:01
PROVIDERS: Internal Medicine; Admitting Provider Hospitalist; Emergency Provider Emergency Medicine; PCP Internal Medicine; Visit Provider Internal Medicine
DX: R11.2 Nausea with vomiting, unspecified (principal); T45.1X5A Adverse effect of antineoplastic and immunosuppressive drugs, initial encounter; C18.9 Malignant neoplasm of colon, unspecified; D75.9 Disease of blood and blood-forming organs, unspecified; D50.9 Iron deficiency anemia, unspecified; E11.22 Type 2 diabetes mellitus with diabetic chronic kidney disease; I12.9 Hypertensive chronic kidney disease with stage 1 through stage 4 chronic kidney disease, or unspecified chronic kidney disease; E78.00 Pure hypercholesterolemia, unspecified; F17.210 Nicotine dependence, cigarettes, uncomplicated; N18.31 Chronic kidney disease, stage 3a; G89.3 Neoplasm related pain (acute) (chronic); K21.9 Gastro-esophageal reflux disease without esophagitis; J45.909 Unspecified asthma, uncomplicated; Z79.899 Other long term (current) drug therapy; Z79.82 Long term (current) use of aspirin; Z79.84 Long term (current) use of oral hypoglycemic drugs
CPT/HCPCS: 36415; 36591; 74176; 80048; 80076; 81001; 83540; 83550; 85025; 85045; 85610; 85730; 87426; 93005; 96361; 96365; 96366; 96372; 96375; 96376; 97161; 97166; 97802; 99218; 99285; J7030; A4216; G0378; J2405; J3490

== ENCOUNTER 2022-03-01 20:38 | Emergency (ER) | payer MEDICARE, MEDICAID, SELFPAY ==
[2022-03-01 20:39] VITALS: BP 99/56; PULSE 72; RESP 28; TEMP 36.1; O2SAT 98; BMI 19.3
--- NOTE | 2022-03-01 20:52 | CT_ITS ---
STUDY: CT BRAIN WITHOUT CONTRAST REASON FOR EXAM: Male, 86 years old. Fall today. Injury. Unable to stop vomiting. History of frequent falls. RADIATION DOSAGE (If Supplied By Facility): CTDIvol = ( 44.99 ) mGy, DLP = ( 880.47 ) mGycm TECHNIQUE: Transaxial CT imaging of the brain was performed without administration of intravenous contrast material. Individualized dose optimization techniques were used for this CT. COMPARISON: No relevant priors. FINDINGS: Normal soft tissue structures. Normal calvarium. There is mild cerebral atrophy with widening of the extra-axial spaces and ventricular dilatation. This is most marked in the left posterior parietal region suggesting possible white matter infarct. Normal basal ganglia and thalami. Normal brainstem. Normal cerebellum. There is no intracranial hemorrhage. There are no findings of an acute ischemic infarction. Normal visualized paranasal sinuses. CT/Brain/Head without Contrast IMPRESSION: Chronic involutional changes without evidence of acute intracranial or calvarial abnormality. Electronically Signed: Luis Enrique Ricci DO at 21:40 EDT ,
--- NOTE | 2022-03-01 20:54 | EX.ED.DYSGE1 ---
HPI History of Present Illness Chief Complaint: Fall Informant: patient and EMS Narrative Narrative: MS was called by the patient's son he stated that his father had been vomiting all day since he fell and hit his head. Patient states that he fell this morning in the kitchen and hit his back not sure if he hit his head. He states that he has been vomiting for days and in fact it is very common for him to vomit. He has been seen several times before for intractable vomiting. 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 Also noted history of hypertension and diabetes. The patient states that he is fine. He told nursing that he has not walked for several days. He tells me that his legs are fine but his legs are weeping and his clothes are wet. EMS was concerned about the state of the house and that the patient seemed to have feces on him. PFSH PFSH Medical History Asthma Cancer Colon cancer Diabetes Diabetes GERD (gastroesophageal reflux disease) High cholesterol Hypertension Kidney stones Smoker Smoker Home Medications amlodipine 5 mg tablet 5 mg PO DAILY BP 02/13/21 [History Last Taken 02/13/21] gabapentin 300 mg capsule 300 mg PO QHS NERVE 02/13/21 [History Last Taken 02/12/21] glimepiride 4 mg tablet 4 mg PO BID DM 02/13/21 [History Last Taken 02/13/21] metformin 850 mg tablet 850 mg PO BIDCM DM 02/13/21 [History Last Taken 02/13/21] aspirin 81 mg PO/SL DAILY heart health 05/09/21 [History Last Taken Unknown] diphenoxylate-atropine 2.5 mg-0.025 mg tablet 1 tab PO Q6H PRN Diarrhea 05/09/21 [History Last Taken Unknown] metoprolol tartrate 25 mg tablet 12.5 mg PO BID blood pressure 05/09/21 [History Last Taken Unknown] food supplemt, lactose-reduced 0.08 gram-1.5 kcal/mL oral liquid (Ensure Enlive) 120 ml PO 4X/DAY nutrition 06/06/21 [History Last Taken Unknown] Allergy/AdvReac Type Severity Reaction Status Date / Time No Known Allergies Allergy Verified 02/23/21 12:28 Family History Father , Denies any known history of HTN, CAD or DM2 No problems noted. Mother , Denies any known history of HTN, CAD or DM2 No problems noted. Surgical History H/O transurethral resection of prostate History of colon surgery Social History household members: children housing: house Smoking Status: Current every day smoker tobacco type: cigarettes Tobacco: How many years used: 60 alcohol intake: former substance use type: marijuana additional social history: Patient endorses using edible marijuana gummies for his cancer related pain. ROS ROS ED ROS Narrative Generalized weakness Constitutional Constitutional ED: Denies chills or weight loss Eyes Eyes: Denies change in vision or diplopia ENT ENT ED: Denies ear pain, rhinorrhea or sore throat Cardiovascular Cardiovascular: Denies chest pain, orthopnea, palpitations or racing heartbeat Respiratory/Chest Respiratory/Chest: Denies cough, dyspnea or orthopnea Gastrointestinal Gastrointestinal: Reports nausea and vomiting; Denies abdominal pain or diarrhea Genitourinary Genitourinary ED: Denies dysuria, hematuria or urinary frequency Musculoskeletal Musculoskeletal: Reports neck pain; Denies arthralgias or myalgias Integumentary Denies abscess or rash Neurologic Neurologic: Denies headache(s) or weakness Psychiatric Psychiatric: Denies anxiety, depression, suicidal ideation or suicidal thoughts Endocrine Endocrinology: Denies polydipsia, polyphagia or polyuria Allergic/Immunologic Allergic/Immunologic ED: Denies mouth swelling, tongue swelling or urticaria EXAM Physical Exam Const Vital Signs: 03/01/22 20:39 03/01/22 20:45 Temperature 96.9 F L Temperature Source Temporal Pulse Rate 72 Respiratory Rate 28 H Respiratory Effort Normal Non-Labored Respiratory Depth Normal Respiratory Pattern Normal Blood Pressure 99/56 L Blood Pressure Mean 70 Pulse Ox 98 Oxygen Delivery Method Room Air Room Air Positive cachectic General Appearance ED: cachectic and NAD Nutritional Appearance: cachectic HEENT Reports normocephalic, head/scalp atraumatic and dry mucous membranes HEENT Narrative: Dry tongue dry lips Mouth ED: Yes dry mucous membranes Mouth: dry mucous membranes Eyes PERRL and EOMs intact bilaterally Neck no lymphadenopathy, supple and no JVD Neck Narrative: Mild tenderness to outpatient in the midline and paraspinal musculature Resp normal respiratory effort and clear to auscultation bilaterally Cardio regular rate, regular rhythm and no murmurs GI normal to inspection, nondistended, normoactive bowel sounds and non-tender Palpation: soft Narrative: Patient appears to have several days worth of dried fecal matter throughout his perineum. Back/Spine no CVA tenderness and normal ROM Extremity Extremity Narrative: Patient's legs are edematous with weeping sores. They do not appear secondarily infected. They have been wrapped by home nursing. Neuro oriented x3 and CN's II-XII intact bilaterally Sensorium / Orientation: alert Motor Exam: strength 5/5 throughout Psych mental status grossly normal Mood & Affect: Negative for depressed or tearful Skin no rashes or lesions noted and no wounds MDM MDM MDM Narrative Medical decision making narrative: White count 12.4 with hemoglobin 9.7 platelet count is 244. CMP shows a potassium of 6.4 BUN of 110 and creatinine 4.58. His CO2 was 18 and anion gap is 15. Glucose is 63. Lipase 45. CT the brain was obtained and negative. CT of the cervical spine was negative for fracture. Patient received IV fluids. We later learned that the patient is in hospice and DNR comfort care only. We were able to speak with the hospice nurses come to the patient's room to visit with him. We are concerned with his living conditions as well as his severe dehydration and acute renal failure. Disposition will be made following the hospice nurse evaluation. Lab Data Attestation: I reviewed the patient's lab results. Labs: Laboratory Results - last 24 hr 03/01/22 03/01/22 20:35 20:35 WBC 12.4 H RBC 3.41 L Hgb 9.7 L Hct 31.2 L MCV 91.5 MCH 28.4 MCHC 31.1 L RDW Std Deviation 57.2 H RDW Coeff of Ortega 17.0 H Plt Count 244 MPV 10.1 Immature Gran % (Auto) 0.400 Neut % (Auto) 84.6 H Lymph % (Auto) 11.2 L [place] % (Auto) 3.6 Eos % (Auto) 0.0 Baso % (Auto) 0.2 Absolute Neuts (auto) 10.5 H Absolute Lymphs (auto) 1.38 Nucleated RBC % 0 Sodium 135 L Potassium 6.4 H* Chloride 102 Carbon Dioxide 18.0 L Anion Gap 15 BUN 110 H* Creatinine 4.58 H Estim Creat Clear Calc 9.26 Est GFR (MDRD) Af Amer 16 L Est GFR (MDRD) Non-Af 13 L BUN/Creatinine Ratio 24.0 H Glucose 63 L Calcium 9.1 Total Bilirubin 0.30 AST 12 L ALT 15 L Alkaline Phosphatase 130 H Total Protein 7.4 Albumin 2.8 L Globulin 4.6 H Albumin/Globulin Ratio 0.6 L Lipase 45 L Radiography Diagnostic Testing: Clinical Impression(s) from Imaging Studies Brain CT 03/01/22 20:52 IMPRESSION: Chronic involutional changes without evidence of acute intracranial or calvarial abnormality. Electronically Signed: Luis Enrique Ricci DO at 21:40 EDT , Cervical Spine CT 03/01/22 20:56 IMPRESSION: Degenerative changes cervical spine without acute fracture or subluxation. Note: MRI is more sensitive than CT in detecting cord injury, ligamentous injury and epidural hematoma. If there is continued clinical concern for any of these entities, MRI should be considered. Electronically Signed: Luis Enrique Ricci DO at 21:46 EDT Reading Location ID and State: [facility] / [place] Tel [phone], Service support , Discharge Plan Triage Chief Complaint: Fall ED Provider: Constantine Leslie Dx/Rx/DC Orders Prescriptions: No Action metformin 850 mg tablet 850 mg PO BIDCM Label Comments: TAKE 1 TABLET BY MOUTH TWICE DAILY WITH MEALS amlodipine 5 mg tablet 5 mg PO DAILY Label Comments: TAKE 1 TABLET BY MOUTH DAILY glimepiride 4 mg tablet 4 mg PO BID Label Comments: Take 1 tablet by mouth twice daily with meals gabapentin 300 mg capsule 300 mg PO QHS Label Comments: Take 1 capsule by mouth once daily for 180 days. diphenoxylate-atropine 2.5-0.025 mg tablet 1 tab PO Q6H PRN (Reason: Diarrhea) Label Comments: Take 1 tablet by mouth four times daily as needed for up to 40 doses. metoprolol tartrate 25 mg tablet 12.5 mg PO BID Label Comments: Take 0.5 tablets by mouth twice daily. (one half tablet morning and one half tablet evening) aspirin 81 mg tablet 81 mg PO/SL DAILY Ensure Enlive 0.08 gram-1.5 kcal/mL liquid 120 ml PO 4X/DAY Primary Care Provider: Caron Galeano Referrals: Caron Galeano MD [Primary Care Provider] -
--- NOTE | 2022-03-01 20:56 | CT_ITS ---
STUDY: CT CERVICAL SPINE WITHOUT CONTRAST REASON FOR EXAM: Male, 86 years old. Injury. Fall today. Neck pain. History of frequent falls. RADIATION DOSAGE (If Supplied By Facility): CTDIvol = ( 12.12 ) mGy, DLP = ( 262.49 ) mGycm TECHNIQUE: High resolution transaxial imaging was performed without contrast material. Sagittal and coronal images were reconstructed. Individualized dose optimization techniques were used for this CT. COMPARISON: None FINDINGS: Normal craniovertebral junction. There are degenerative changes of the anterior atlantoaxial articulation. Normal odontoid process. Normal cervical lordosis. Normal vertebral bodies and posterior osseous elements. C2-3: Normal endplates. Loss of disc height with minimal bulging annulus. Facet joint degenerative change. Normal central canal and intervertebral neuroforamina. C3-4: Normal endplates. Posterior disc space narrowing. No bulging annulus. Facet joint degenerative change.. Normal central canal. Narrowing of the right intervertebral neuroforamen. C4-5: Normal endplates. Mild loss of disc height. Minimal bulging annulus. Facet joint degenerative change.. Normal central canal and intervertebral neuroforamina. C5-6: Minimal endplate spondylosis. Mild loss of disc height with bulging annulus. Facet joint degenerative change. Normal central canal and intervertebral neuroforamina. C6-7: Marked endplate spondylosis with loss of disc height and bulging annulus. Facet and uncovertebral joint degenerative change. Mild stenosis on central canal and narrowing of the right intervertebral neuroforamen. C7-T1: Normal endplates. Normal disc height and morphology. No facet joint degenerative change Normal central canal and intervertebral neuroforamina. Emphysematous changes of the lung apices. Bilateral carotid artery calcifications CT/Spine Cervical without Contras IMPRESSION: Degenerative changes cervical spine without acute fracture or subluxation. Note: MRI is more sensitive than CT in detecting cord injury, ligamentous injury and epidural hematoma. If there is continued clinical concern for any of these entities, MRI should be considered. Electronically Signed: Luis Enrique Ricci DO at 21:46 EDT Reading Location ID and State: [address] [place] [address] Tel [phone], Service support ,
[2022-03-01 21:14] LABS: Absolute Lymphocyte Count 1.38 X10^3/uL (0.83-4.51); Absolute Neutrophil Count 10.5 X10^3/uL (2.0-7.7); Basophil# 0.02 X10^3/uL; Basophil% 0.2 % (0-1); Hematocrit 31.2 % (40-54); Hemoglobin 9.7 g/dL (13.0-16.5); Lymphocyte # 1.38 X10^3/ul (0.83-4.51); Lymphocyte % 11.2 % (19-41); Mean Corp Hgb Conc 31.1 g/dL (32-36); Mean Corpuscular Hgb 28.4 pg (27.0-32.0); Mean Corpuscular Volume 91.5 fL (80-94); Mean Platelet Vol. 10.1 fl (6.2-12.0); Monocyte# 0.45 X10^3/uL; Monocyte% 3.6 % (0-10); NRBC Flagged by Analyzer 0 % (0-5); Neutrophil # 10.47 X10^3/uL (2.7-7.7); Neutrophil % 84.6 % (47-70); Platelet Count 244 K/mm3 (150-450); RBC Distribution Width SD 57.2 fl (35.1-43.9); Red Blood Count 3.41 M/mm3 (4.6-6.2); White Blood Count 12.4 K/mm3 (4.4-11.0)
[2022-03-01 21:31] LABS: ALB/GLOB Ratio 0.6 RATIO (0.9-2.4); AST(SGOT) 12 U/L (15-37); Alanine Aminotransfer ALT/SGPT 15 U/L (16-61); Albumin, Serum 2.8 g/dL (3.2-5.0); Alkaline Phosphatase 130 U/L (45-117); Anion Gap 15 (5-15); BUN 110 mg/dL (7-18); Calcium,Total 9.1 mg/dL (8.5-10.1); Chloride 102 mmol/L (98-107); Creatinine, Serum 4.58 mg/dL (0.70-1.30); EST Glomerular Filtration Rate 13 mL/min (>60); Est Glom Filt Rate - Afr Amer 16 mL/min (>60); Estimated Creatinine Clearance 9.26 ml/min; Globulin 4.6 g/dL (2.2-4.2); Glucose 63 mg/dL (74-106); Lipase 45 U/L (73-393); Potassium 6.4 mmol/L (3.5-5.1); Protein, Total 7.4 g/dL (6.4-8.2); Sodium Level 135 mmol/L (136-145)
[2022-03-01] MEDS: 0.9% Normal Saline 1,000 ML 1000 ML IV (21:45)
--- NOTE | 2022-03-01 22:52 | ED.RN ---
Per EMS patients house was very dirty and messy, patient was sitting on wet furniture and the patient was soiled himself. It took this RN and 1 additional RN multiple packs of wipes and about 30 minutes to clean patient of all the dried stool and urine on him. When questioning the patient he states his son takes care of him, helps him use the restroom and orders him dinner once a day. This RN expresses concern that he is not being taken care of, and that he is not eating or drinking at home. Pt states my son does the best he can when he's home, i just want to take care of him Pt is emaciated and visibly malnourished. open wounds noted to b/l lower legs that are seeping. dressing that were on lower legs were saturated with urine. pressure wounds noted to right knee and right hip. Pt then tells us he has a hospice nurse. Hospice nurse contacted. Gladis SOTELO[employer] potato processor nurse assesses patient at bedside and determines patient meets criteria for their IPU. Pt in agreement to plan.
[2022-03-01] MEDS: 0.9% Normal Saline 1,000 ML 999 ML IV (23:08)
[2022-03-01] MEDS: Ondansetron 4 MG/2 ML Vial IV (23:08)
[2022-03-01] MEDS: Dextrose 50%-Water 25 GM/50 ML DISP.SYRIN IV (23:08)
--- NOTE | 2022-03-01 23:12 | ED.RN ---
taylor Wright notified over the phone of patients pending transfer to hospice IPU.
[2022-03-01 23:33] VITALS: BP 124/63; PULSE 85; RESP 9; O2SAT 94
[2022-03-02 00:56] VITALS: BP 144/81; PULSE 85; RESP 29; O2SAT 99
[2022-03-02 01:00] VITALS: BP 137/79; PULSE 87; RESP 10; O2SAT 96
== END 2022-03-02 01:35 | disposition hospice, inpatient (51) ==
PROVIDERS: Emergency Provider Emergency Medicine; PCP Internal Medicine; Visit Provider Emergency Medicine
DX: S09.90XA Unspecified injury of head, initial encounter (principal); F12.90 Cannabis use, unspecified, uncomplicated; F17.210 Nicotine dependence, cigarettes, uncomplicated; W19.XXXA Unspecified fall, initial encounter
CPT/HCPCS: 70450; 72125; 80053; 83690; 85025; 96374; 96375; 99285; J7030; J2405